=== PATIENT | female | born 1955 | race Caucasian/White ===

== ENCOUNTER → 2016-11-16 | Outpatient (CLI) | payer MEDICARE, OTHER ==
[~2016-11-16] MED LIST: ASPI-482 PO; AZEL137S5 NS; CALC-178 PO; CARB1DRO5 OP; CETI10TA16 PO; CYAN100T PO; CYCL10TA2 PO; DIAZ5TAB PO; DICY20TA30 PO; ESTR0.3T PO; FENT1PAT15 TD; FENT1PAT17 TD; FEXO180T81 PO; FLUT1DIS5 IH; FURO-69 PO; IMIQ1CRE17 TP; LACT1CAP2 PO; LACT1CAP29 PO; LANS30CA17 PO; LOSA25TA PO; MAGN100T3 PO; METF500T4 PO; METO25TA4 PO; MILK500C PO; MOVANTIK25 MG PO; MULT1CAP15 PO; OXYC30TA PO; POLY17PO5 PO; POTA10CA PO; RANI75TA12 PO; SERT25TA PO; SIMPLY SALINE; SPIR25TA3 PO
--- NOTE | 2016-11-17 01:13 | PAIN ---
DATE OF SERVICE: 11/16/2016 PROGRESS NOTE FOR PAIN CLINIC DIAGNOSES: 1. Lumbar radiculopathy with lumbar degenerative disk disease and post-lumbar laminectomy syndrome. 2. Post-cervical laminectomy syndrome. 3. Multiple joint pain. HISTORY OF PRESENT ILLNESS: The patient is a 60-year-old female who returns for followup status post medication management with both Duragesic patches and oxycodone, also taking Flexeril and Movantik with good results. The patient reports that she has been fairly steady with her pain, it has been about a 7-8 on a scale of 10. It is worse, but is currently a 2-3 on a scale of 10 today. The patient reports it is still aching and dull across the low back. The patient reports she fell on her bathtub yesterday and hurt her left knee, which is somewhat swollen in appearance today, but does not appear to have a large amount of fluid in it. The patient reports she is worried about this and we discussed that she would follow up with her orthopedic physician regarding her left knee. The patient reports otherwise doing fairly well, has had appropriate K-TRACS reporting today and appropriate urinalysis to date as well. The patient will have urinalysis today as scheduled. PHYSICAL EXAMINATION: VITAL SIGNS: The patient's blood pressure 137/73, pulse 80, respirations 18, temperature 97.8 degrees Fahrenheit, height is 5 feet 3 inches. GENERAL: The patient is awake, alert, oriented, appropriate, very pleasant demeanor. HEENT: Head shows normocephalic, atraumatic. Extraocular movements are intact and symmetrical. Oral cavity shows mucous membranes moist and pink. Dentition is intact. NECK: Shows anterior throat supple without palpable lymphadenopathy noted. Swallow reflex is symmetrical. CHEST: Shows normal on inspection. Breath sounds are clear to auscultation bilaterally. HEART: Shows S1 and S2 clear. No murmurs are auscultated. ABDOMEN: Obese, soft, nontender, nondistended. No palpable organomegaly is noted. No rebound or guarding demonstrated. BACK: Shows spine grossly midline. Slight exaggeration of thoracic kyphosis and mild flattening of lumbar lordotic curvature, previously well-healed surgical scars noted in the lumbar distribution. Lumbar paraspinous muscle shows some moderate tenderness with palpation, but only diffusely bilaterally. No tenderness over the sacrum or sacroiliac regions, or the spinous processes. The patient shows good rotation and motion of the lumbar spine, both laterally as well as extension and flexion without significant difficulty. EXTREMITIES: Lower extremities showed deep tendon reflexes at 1+ in the patellar and tendo calcaneus tendons are equal. Motor exam is approximately 4 on a scale of 5, but symmetrical and equal bilaterally. Peripheral pulses are 1+ posterior tibial and dorsalis pedis pulses. The patient does have about 1-2+ pitting edema on the bilateral ankles extending about half the distance in the knee on anterior tibia. Options were discussed with the patient. The patient's old chart was reviewed and her current medication regimen updated. Current review of systems updated today as well. We will refill the patient's oxycodone and Duragesic patches as well as Flexeril and Movantik with instructions, side effects to be aware of discussed. The patient will follow up in approximately 90 days and she was given a 3-month prescription or sooner if necessary. Again, urinalysis will be obtained today as routine screening and the patient will follow up with her orthopedic physician regarding her left knee pain. FABIAN ORDONEZ MD DR: AIDA/reji JOB#: [id number] / [id number]
== END | disposition home or self-care (01) ==
LOC: PNCL 12:45
PROVIDERS: ATTEND Anesthesiology
DX: M51.16 Intervertebral disc disorders with radiculopathy, lumbar region (principal); M96.1 Postlaminectomy syndrome, not elsewhere classified; M25.50 Pain in unspecified joint
CPT/HCPCS: G0463

== ENCOUNTER → 2017-02-15 | Outpatient (CLI) | payer MEDICARE, OTHER ==
[~2017-02-15] MED LIST changes: -LANS30CA17 PO; +LANS30CA66 PO; +POLY17PO29 PO; -POLY17PO5 PO; -POTA10CA PO; +POTASSIUM CHLO10 MEQ PO
--- NOTE | 2017-02-16 05:15 | PAIN ---
DATE OF SERVICE: 02/15/2017 PROGRESS NOTE FOR PAIN CLINIC DIAGNOSES: 1. Lumbar radiculopathy with lumbar degenerative disk disease and post lumbar laminectomy syndrome. 2. Post cervical laminectomy syndrome. 3. Multiple joint pain. HISTORY OF PRESENT ILLNESS: The patient is a 61-year-old female who returns for follow up status post medication management with both oxycodone and Duragesic patches. The patient also taking Flexeril and Naprosyn. The patient reports no side effects with the medications, it is probably 70 to 80% improvement with the medications without the side effects. The patient reports she has had recent skin cancers removed on her chest and arms x 5 and this has taken a lot of energy out of her and also having some knee pain as well as some hip pain bilaterally. The patient reports she fell on her bathtub about a week ago. She was losing balance, but has not had any other falls before or since that recently. The patient reports still significant pain across the shoulders, mid back, low back and left lower extremity, stabbing, burning pain in the leg, also shooting pain with pain in the low back, it is constant, becomes unbearable off and on in intensity, but always present and radiate into the left leg, as well as the shoulders and upper back. The patient reports it as a 10 on a scale of 10 at its worst, is a 6 at its least, and currently is a 6 today. The patient reports that the medication again does decrease it by significant amount and without significant side effects. PHYSICAL EXAMINATION: VITAL SIGNS: Blood pressure 150/79, pulse 87, respirations 18, temperature 97.5 degrees Fahrenheit. Weight is 174 pounds. GENERAL: The patient is awake, alert, oriented, appropriate, very pleasant demeanor. HEENT: Head shows normocephalic, atraumatic. Extraocular movements are intact and symmetrical. Oral cavity shows mucous membranes moist and pink. Dentition is intact. NECK: Shows anterior throat supple without palpable lymphadenopathy noted. Swallow reflex is symmetrical. CHEST: Shows normal on inspection. Previously well-healed surgical scar is noted in the anterior chest in the superior aspect from recent skin biopsies. Chest shows normal otherwise on inspection. Breath sounds are clear to auscultation bilaterally. HEART: Shows S1 and S2 clear. No murmurs auscultated. ABDOMEN: Obese, soft, nontender, nondistended. No palpable organomegaly. No rebound or guarding demonstrated. BACK: The patient's back shows spine grossly in midline. Slight exaggeration of thoracic kyphosis and mild flattening of lumbar lordotic curvature. Well-healed surgical scar is noted in the lumbar distribution. The patient's lumbar paraspinous muscle shows some moderate tenderness with palpation, but only diffusely throughout the upper, middle and lower distribution in the paraspinous musculature. EXTREMITIES: The patient's lower extremities show deep tendon reflexes at 1+ in the patella and tendo calcaneous tendons. Motor exam is strong with 5/5 dorsiflexion and extension and equal. PLAN: Options were discussed with the patient, the patient's old chart was reviewed. Her current medication regimen updated. Current review of systems updated today as well. We will refill the patient's Duragesic patch as well as oxycodone, Flexeril and Naprosyn. ____ instructions, side effects to be aware discussed. The patient will follow up in approximately 3 months and is given a 90 day supply or sooner if necessary. The patient will keep appointments with her car wash supervisor as she is having more biopsies done later this month, also with her boiler repair supervisor as she has had some edema in her lower extremities and she has been treated for congestive heart failure. Also she is having arteriograms done on the lower extremities as she has had some vascular claudication symptoms as well. I encouraged her to follow up with her vascular surgeon regarding this also. The patient understands and agrees and will follow up as scheduled. FABIAN ORDONEZ MD DR: AIDA/reji JOB#: [id number] / [id number]
== END | disposition home or self-care (01) ==
LOC: PNCL 12:05
PROVIDERS: ATTEND Anesthesiology
DX: M51.16 Intervertebral disc disorders with radiculopathy, lumbar region (principal); M96.1 Postlaminectomy syndrome, not elsewhere classified; M25.50 Pain in unspecified joint
CPT/HCPCS: G0463

== ENCOUNTER → 2017-05-10 | Outpatient (CLI) | payer MEDICARE, OTHER ==
--- NOTE | 2017-05-10 19:25 | PAIN ---
DATE OF SERVICE: 05/10/2017 DIAGNOSES: 1. Lumbar radiculopathy with lumbar degenerative disk disease and post-lumbar laminectomy syndrome. 2. Post-cervical laminectomy syndrome. 3. Multiple joint pain. HISTORY OF PRESENT ILLNESS: Ms. Ward is a 61-year-old female who returns for followup status post medication management with both Duragesic patches and oxycodone. The patient reports that she has been doing fairly well with this, but not very stable regimen, with about 75% improvement overall by her estimate. The patient reports no side effects with the medications. She was taking some [id number]-knrvwuf stool softeners and laxatives, which keeps her regular. We tried some Movantik with her in the past but she had a significant rash from this and discontinued it. The patient reports she has been increasing her activity proportionately, but she has recently broken her fifth toe on her left foot. She has the boot on that foot today as well. The patient reports otherwise doing fairly well. No new motor or sensory deficits, no new bowel or bladder incontinence. She has had some more skin cancers removed for her chest and arms since her last visit, and she is quite sad today because her dog last night. The patient reports otherwise pain is mostly in the shoulders, mid upper back, lower back, with some stabbing, burning pain in the lower extremities, and some radicular pain in the left side more than the right, which is tingling, burning, stabbing, tight, shooting, sharp, aching, radiating, constant, can be severe, unbearable, rates as 10 on a scale of 10 at its worst, 7 at its least, and a 9 on average. The patient reports no new motor or sensory deficits, no new bowel or bladder incontinence or other complaints. PHYSICAL EXAMINATION: VITAL SIGNS: Today, the patient's blood pressure is 168/74, pulse 93, respirations 18, temperature 98.8 degrees Fahrenheit, height 5 feet 1 inch, weight is 174 pounds. GENERAL: The patient is awake, alert, oriented, appropriate, very pleasant demeanor. HEENT: Head shows normocephalic, atraumatic. Extraocular movements are intact and symmetrical. Oral cavity shows mucous membranes moist and pink: The patient has a new upper plate denture in, but the lower teeth are intact. NECK: Shows anterior throat supple, without palpable lymphadenopathy noted. Swallow reflex is symmetrical. Neck shows good rotation motion both laterally as well as extension and flexion, with some minor tenderness with extension but not with forward flexion, not with right and left lateral rotation which she performs past 45 degrees and closer to 90 degrees bilaterally. CHEST: Shows normal on inspection. Breath sounds are clear to auscultation bilaterally. The patient does have some previously well-healed surgical scar in the anterior chest from recent skin biopsies as well. HEART: Shows S1 and S2 clear. No murmurs auscultated. ABDOMEN: Soft, nontender, nondistended. No palpable organomegaly. No rebound or guarding demonstrated. BACK: Shows grossly midline spine. Slight exaggeration of thoracic kyphosis and some mild flattening of lumbar lordotic curvature. Well-healed surgical scars again noted in the cervical and lumbar distributions, anterior cervical, posterior lumbar, with some minor flattening of lumbar distribution of the lordotic curvature. Paraspinous musculature shows symmetrical with inspection. There is some moderate tenderness with palpation throughout the upper, middle, lower distribution of paraspinous muscles, again diffusely without radiation, without trigger points. No tenderness over the sacrum or sacroiliac regions. No tenderness over the spinous processes. The patient shows good rotational motion both laterally as well as with extension and flexion of lumbar spine without significant pain reported. EXTREMITIES: The patient's lower extremities showed deep tendon reflexes 1+ in the patellar and tendo-calcaneus tendons. Motor exam is strong with 5/5 dorsiflexion and extension on the right, and approximately 4/5, secondary to pain from recent fracture on the left side of her left fifth toe. Quadriceps and hamstring flexion was 5/5 and equal. Upper extremities showed deep tendon reflexes 2+ in the biceps and triceps tendons. Motor exam is strong with quality control director strength rated at 5/5, as is biceps and triceps flexion and symmetrical. Peripheral pulses are 2+ in the radial and 1+ posterior tibial. No peripheral edema is noted. In the upper extremities, there are 1+ pitting edema in the right anterior tibia from the ankle to approximately two-thirds of the distance of the knee on the right side. Left side is without edema. PLAN: Options were discussed with the patient. The patient's old chart was reviewed, as her current medication regimen updated. Current review of systems updated today as well. We will refill patient's Duragesic patch as well as oxycodone. Flexeril and Naprosyn with instructions and side effects to be aware of were discussed with the patient, with each of the medications. The patient was given a 90-day supply. Will follow up in approximately that time period, or sooner if necessary. The patient was counseled as to activity levels as well as side effects to be aware with the medication. She had appropriate K-TRACS reporting as well as appropriate urinalysis to date as well. We will renew her narcotic contract today. Also, the patient was counseled as to diet as well as hydration level and will follow up as scheduled in 90 days or sooner if necessary. FABIAN ORDONEZ MD DR: AIDA/reji JOB#: [id number] / [id number]
== END | disposition home or self-care (01) ==
LOC: PNCL 13:29
PROVIDERS: ATTEND Anesthesiology
DX: M51.16 Intervertebral disc disorders with radiculopathy, lumbar region (principal); M25.511 Pain in right shoulder
CPT/HCPCS: G0463

== ENCOUNTER → 2017-08-02 | Outpatient (CLI) | payer MEDICARE, OTHER ==
[~2017-08-02] MED LIST changes: +CLOT10TR PO; +FENT1PAT90 TP; +NAPR-683 PO; +OXYC10TA PO; +SIME80TA14 PO; +[UNRECOGNIZED DRUG - OTHER] PO
--- NOTE | 2017-08-03 01:03 | PAIN ---
DATE OF SERVICE: 08/02/2017 PROGRESS NOTE FOR PAIN CLINIC DIAGNOSES: 1. Lumbar radiculopathy with lumbar degenerative disk disease, post-lumbar laminectomy syndrome. 2. Post-cervical laminectomy syndrome. 3. Multiple joint pains. HISTORY OF PRESENT ILLNESS: The patient is a 61-year-old female who returns for followup status post medication management with both Duragesic patches and oxycodone and also the patient taking Flexeril for muscle relaxation. The patient had been on Naprosyn that has been discontinued with her primary physician as she has had some findings of liver cirrhosis by ultrasound and CT scan with some fibrotic changes in the liver. The patient did have some very mildly elevated liver enzymes as well as elevated ammonia levels. The patient reports she has been feeling fairly stable; however, has had some right upper quadrant abdominal pain, but has had a cholecystectomy many years ago. The patient reports otherwise she was just having some abdominal pain and this workup led to some findings of some fibrosis in the liver. The patient reports she has been taken off of all of her herbal supplements as well as anti-inflammatories, but feels about the same. The patient reports still having pain across the shoulders and base of the neck as well as the bilateral hips and gluteus as well as across the low back and into the right leg primarily as she has had previously. The patient has been doing well on her medication regimen with no side effects from the Duragesic or the oxycodone. The patient reports the pain is a 9 on a scale of 10 at its worse mostly across the low back and shoulders, an 8 on average, an 8 at its least and it is a 8 today. The patient reports it is radiating, severe, cramping, stabbing, tingling, aching, sharp and shooting alternating mostly in the low back and shoulders. Abdominal pain has subsided almost completely since it was bothering her a few weeks ago. The patient reports no new motor or sensory deficits and no new changes. The patient reports it awakens her from sleep at night mainly the pain in the low back and occasionally the neck pain. PHYSICAL EXAMINATION: VITAL SIGNS: Today, blood pressure 132/82, pulse 84, respirations 16, temperature 97.8 degrees Fahrenheit, height 63 inches and weight 173 pounds. GENERAL: The patient is awake, alert, oriented, appropriate and very pleasant demeanor. HEENT: Head shows normocephalic and atraumatic. The patient wears eyeglasses. Extraocular movements are intact and symmetrical. Oral cavity: Mucous membranes moist and pink. Dentition is intact. NECK: Shows anterior throat supple without palpable lymphadenopathy noted. Swallow reflex is symmetrical. CHEST: Shows normal on inspection. Breath sounds are clear to auscultation bilaterally. HEART: Shows S1 and S2 clear. No murmurs auscultated. ABDOMEN: Obese, soft, nontender and nondistended. Well-healed surgical scar is noted in the right upper quadrant. No rebound or guarding demonstrated. MUSCULOSKELETAL: The patient's back shows spine grossly midline, slight exaggeration of thoracic kyphosis and mild flattening of the lumbar lordotic curvature. Lumbar paraspinous musculature shows symmetrical with flattening and real well-healed surgical scar in the lumbar distribution as well. The patient's neck shows good rotational motion both laterally as well as extension and flexion without significant difficulty. Palpation of the paraspinous musculature shows some moderate tenderness in the inferior aspect of the paraspinous distribution, but without radiation. Also some mild tenderness in the right greater than left superior medial and lateral trapezius without radiation and without trigger points. Low back shows tenderness with palpation in the lumbar paraspinous muscles, although they are symmetrical without trigger points and without radiation. The patient has good rotational motion both laterally as well as extension and flexion in the lumbar spine as well. Extremities show deep tendon reflexes 1+ in the patellar and tendo calcaneus tendons. Motor exam is 5/5 on the right and approximately 4/5 on the left with dorsiflexion and extension. Peripheral pulses are 1+ bilaterally. No peripheral edema is noted, although she has some erythematous discoloration on the right foot compared to the left, but with good blanching and capillary refill. Options were discussed with the patient. The patient's old chart was reviewed. Her current medication regimen updated. Current review of systems updated today as well and we will refill the patient's Duragesic patch as well as oxycodone for a 2-month supply. The patient is to follow up with her primary physician regarding further workup on her liver enzymes and cirrhosis condition. We will hold Naprosyn as noted. The patient will have a urinalysis today as well and she has had normal appropriate urinalysis and appropriate K-TRACS reporting to date. We will obtain another urinalysis today as a routine screening. The patient was given instructions as well as side effects to be aware of with the medication, any changes in the medication recommendations from her primary physician was asked to have her office call and notify us as well. FABIAN ORDONEZ MD DR: AIDA/reji JOB#: [id number] / [id number]
== END | disposition home or self-care (01) ==
LOC: PNCL 13:04
PROVIDERS: ATTEND Anesthesiology
DX: M51.16 Intervertebral disc disorders with radiculopathy, lumbar region (principal); K74.60 Unspecified cirrhosis of liver
CPT/HCPCS: G0463

== ENCOUNTER → 2017-10-25 | Outpatient (CLI) | payer MEDICARE, OTHER | END | disposition home or self-care (01) | LOC: PNCL 13:09 | DX: M51.16 Intervertebral disc disorders with radiculopathy, lumbar region (principal) | CPT/HCPCS: G0463 ==

== ENCOUNTER → 2018-01-17 | Outpatient (CLI) | payer MEDICARE, OTHER | END | disposition home or self-care (01) | LOC: PNCL 13:28 | DX: M51.16 Intervertebral disc disorders with radiculopathy, lumbar region (principal) | CPT/HCPCS: G0463 ==

== ENCOUNTER → 2018-04-11 | Outpatient (CLI) | payer MEDICARE, OTHER ==
[~2018-04-11] MED LIST changes: -METF500T4 PO; +METF500T5 PO; +POTA10TA12 PO; -POTASSIUM CHLO10 MEQ PO; -SPIR25TA3 PO; +SPIR25TA5 PO
--- NOTE | 2018-04-12 07:22 | PAIN ---
DATE OF SERVICE: 04/11/2018 PROGRESS NOTE FOR PAIN CLINIC DIAGNOSES: 1. Lumbar radiculopathy with lumbar degenerative disk disease, post-lumbar laminectomy syndrome. 2. Post-cervical laminectomy syndrome. 3. Multiple joint pains. HISTORY OF PRESENT ILLNESS: The patient is a 62-year-old female who returns for followup status post medication management with both Duragesic patches and oxycodone. The patient reports she has been doing very well with each of these and indeed has been on very stable regimen with the two medications with no skin irritation. She has been rotating the sites of her patches. The patient reports no excessive drowsiness, sleepiness, itching, nausea or constipation. She has tried to drink more water as well. The patient reports she has been in the hospital for cellulitis in her right leg twice since her last visit and her ammonia levels have been increased. They are watching this very closely with her engagement specialist. The patient reports the pain is in her neck, shoulders, upper back, mid back and low back into the right posterior gluteus, posterior thigh radiating to the posterior calf as well as some in the knees bilaterally as well as the shoulder joints. The patient reports the pain is sharp, tight, shooting, stabbing, cramping, burning, tingling, constant, radiating, severe, on and off in intensity, worse with activities, worse with standing, walking and using a computer. The patient reports her pain is a 10 on a scale of 10 at its worst, 9 on average and a 9 at its least and is a 9 today. The patient reports no new motor or sensory deficits and no new changes. PHYSICAL EXAMINATION: VITAL SIGNS: The patient's blood pressure 134/86, pulse 96, respirations 16, temperature 98.1 degrees Fahrenheit. Height is 63 inches and weight 174 pounds. GENERAL: The patient is awake, alert, oriented, appropriate, very pleasant demeanor. HEENT: Head shows normocephalic and atraumatic. Extraocular movements intact, symmetrical. Oral cavity, mucous membranes are moist and pink. Dentition is intact. NECK: Shows anterior throat is supple without palpable lymphadenopathy noted. Swallow reflex is symmetrical. CHEST: Shows normal on inspection. Breath sounds are clear to auscultation bilaterally. HEART: Shows S1, S2 clear. No murmurs auscultated. ABDOMEN: Obese, but soft, nontender, nondistended. No palpable organomegaly is noted. No rebound or guarding demonstrated. BACK: Shows spine grossly in the midline. Slight exaggeration of thoracic kyphosis and some flattening of lumbar lordotic curvature. She has well-healed surgical scarring in lumbar distribution. Paraspinous musculature shows symmetrical, but tender with palpation throughout the cervical paraspinous musculature in the middle and lower distributions as well as the superior, medial and lateral trapezius essentially equal without specific trigger points, but with diffuse tenderness throughout ____ most of the thoracic distribution as well as the upper, lower and middle distribution of paraspinous muscles in the lumbar distribution. Again diffusely tender without radiation. No tenderness over the sacrum or sacroiliac regions. EXTREMITIES: Lower extremities show deep tendon reflexes 1+ in the patellar and tendo calcaneus tendons. Upper extremities shows 2+ biceps and triceps tendons. Motor exam is strong with tourism radio presenter strength rated approximately 4 on a scale of 5. Bicep and tricep flexion 4/5 as well. Lower extremities show dorsiflexion and extension at 4/5. The patient's right leg does show some erythematous discoloration. The patient has a bandage in the mid upper calf on the right side, which is well wrapped. The patient does have 1+ edema in the right lower extremity, but not the left. Peripheral pulses are 2+ radial and 1+ posterior tibial. Options were discussed with the patient. The patient's old chart was reviewed as was her current medication regimen updated. Current review of systems updated today as well. We will refill the patient's Duragesic patch as well as oxycodone for 3 month period. The patient has had appropriate K-TRACS reporting as well as appropriate urinalysis to date and will be given a 90-day supply of her prescriptions with instructions, side effects to be aware of discussed. The patient will follow up in approximately 90 days or sooner if necessary. FABIAN ORDONEZ MD DR: AIDA/reji JOB#: [id number] / [id number]
== END | disposition home or self-care (01) ==
LOC: PNCL 13:14
PROVIDERS: ATTEND Anesthesiology
DX: M51.16 Intervertebral disc disorders with radiculopathy, lumbar region (principal)
CPT/HCPCS: G0463

== ENCOUNTER → 2018-07-04 | Outpatient (CLI) | payer MEDICARE, OTHER ==
[~2018-07-04] MED LIST changes: +METF500T16 PO; -METF500T5 PO
--- NOTE | 2018-07-04 22:03 | PAIN ---
DATE OF SERVICE: 07/04/2018 PROGRESS NOTE FOR PAIN CLINIC DIAGNOSES: 1. Lumbar radiculopathy with lumbar degenerative disk disease and post-lumbar laminectomy syndrome. 2. Post-cervical laminectomy syndrome. 3. Multiple joint pain. HISTORY OF PRESENT ILLNESS: The patient is a 62-year-old female who returns for followup status post medication management. The patient is managed with Duragesic patch as well as oxycodone. The patient reports she has been doing quite well, has been on a very stable regimen. Reports her pain control is about 75% or so. She has some increased pain in her left leg as she is having some cellulitis and edema issues, once again in her lower extremities, worse on the left than the right. Otherwise, her pain is fairly well managed with her low back pain as well as her back, neck and shoulder pain. The patient reports the pain in her back and neck and leg is aching, shooting, tingling, burning, cramping, stabbing, sometimes radiating, sometimes constant in the left leg especially. The patient reports her pain is worst at 10 on a scale of 10 in her left leg, least is 9, average is a 10 on the leg itself, the back and shoulders are more like a 4 or 5 by her estimation. The patient reports she sleeps during the day generally but does not awaken her often from the pain except for her left leg recently. The patient reports she is having this looked at with both her busperson as well as her tailor's aide. The patient reports no new motor or sensory deficits, no bowel or bladder incontinence. Reports some complaints of memory issues and forgetfulness, also having low energy. PHYSICAL EXAMINATION: VITAL SIGNS: The patient's blood pressure 132/79, pulse 91, respirations are 16, temperature is 98.1 degrees Fahrenheit. Height is 63 inches, weight is 165 pounds. GENERAL: The patient is awake, alert, oriented, appropriate, very pleasant demeanor. HEENT: Head shows normocephalic, atraumatic. Extraocular movements are intact and symmetrical. Oral cavity: Mucous membranes are moist and pink. Dentition is intact. NECK: Shows anterior throat supple without palpable lymphadenopathy noted. Swallow reflex is symmetrical. CHEST: Shows normal on inspection. Breath sounds are clear to auscultation bilaterally. HEART: Shows S1, S2 clear. No murmurs auscultated. ABDOMEN: Soft, nontender, nondistended. No palpable organomegaly is noted. No rebound or guarding demonstrated. BACK: Shows spine grossly in the midline. Slightly exaggerated thoracic kyphosis and some mild flattening of lumbar lordotic curvature. Lumbar paraspinous musculature is symmetrical and well-healed surgical scar present. Moderate tenderness throughout the cervical paraspinous musculature in superior, medial and lateral trapezius as well as the lumbar superior medial and lateral aspects of the paraspinous muscles as well, diffusely without trigger points or radiation. The patient has good rotational motion of cervical spine, both laterally as well as extension and flexion as well as of the lumbar spine, both laterally, extension and flexion as well. EXTREMITIES: Upper extremity deep tendon reflexes are 2+ and lower deep tendon reflexes are 1+ in the patellar tendons. Lower extremities show significant erythematous change in both lower extremities from the knee down, more on the left than the right with about 3+ pitting edema on the left and 1+ on the right. Peripheral pulses are 1+ posterior tibial bilaterally. Options were discussed with the patient. The patient's old chart was reviewed as her current medication regimen updated. Current review of systems updated today as well. We will refill the patient's Duragesic patch as well as oxycodone with instructions, side effects to be aware of. The patient has had appropriate K-TRACS reporting as well as appropriate urinalysis to date and we will refill this for a 90-day period as the patient does live far distance from the office and has done very well with these with very stable regimen. The patient was given instructions as well as side effects to be aware of with each of the medication, will follow up in approximately 90 days or sooner as necessary. FABIAN ORDONEZ MD DR: AIDA/reji JOB#: [id number] / [id number]
== END | disposition home or self-care (01) ==
LOC: PNCL 13:05
PROVIDERS: ATTEND Anesthesiology
DX: M54.16 Radiculopathy, lumbar region (principal); M51.36 Other intervertebral disc degeneration, lumbar region; M96.1 Postlaminectomy syndrome, not elsewhere classified; M25.50 Pain in unspecified joint
CPT/HCPCS: G0463

== ENCOUNTER → 2018-10-01 | Outpatient (CLI) | payer MEDICARE, OTHER ==
[~2018-10-01] MED LIST changes: +LACT20SO PO; -OXYC30TA PO; +OXYC30TA3 PO; +[UNRECOGNIZED DRUG - OTHER]
--- NOTE | 2018-10-01 21:37 | PAIN ---
DATE OF SERVICE: 10/01/2018 PROGRESS NOTE FOR PAIN CLINIC DIAGNOSES: 1. Lumbar radiculopathy with lumbar degenerative disk disease and post-lumbar laminectomy syndrome. 2. Post-cervical laminectomy syndrome. 3. Multiple joint pains. HISTORY OF PRESENT ILLNESS: The patient is a 62-year-old female who returns for followup status post medication management with Duragesic patches and oxycodone. The patient reports she had been doing very well, had been on very stable regimen with it and indeed has been on this for quite some time with good results. The patient reports about 70% to 80% improvement with the medicines, without significant side effects. The patient reports no significant constipation. No dizziness, drowsiness or any type of nausea or vomiting. No itching. The patient tolerates the medicines very well. The patient reports she has had some cellulitis in both of her legs lately, which has been itching and bothering her, but otherwise, her back pain and neck pain is fairly well controlled. The patient reports it is worse with activity, walking and standing and can be as high as a 10 on a scale of 10, but most times it is about a 6. The patient reports it is sharp, shooting, burning, tingling, cramping, sometimes constant, radiating with activity, standing and walking. She has had difficulty getting in and out of the bathtub because of the pain in her back, stepping over the side of the tub. Other than that, she sleeps well at night. It does not awaken her from sleep. She has been increasing activity with walking and household activities, but plans to be more active soon with exercise routine. The patient also reports that her nephew has recently and she is going to start attending a grief support group at her local [facility] with a friend of hers. No new motor or sensory deficits. No new bowel or bladder incontinence or other complaints. No side effects with medications. PHYSICAL EXAMINATION: VITAL SIGNS: The patient's blood pressure is 126/68, pulse 91, respirations 18 and temperature 98.2 degrees Fahrenheit. Height is 5 feet 1 inch, weight is 165 pounds. GENERAL: The patient is awake, alert, oriented, appropriate, very pleasant demeanor. HEENT EXAMINATION: Shows normocephalic, atraumatic. Extraocular movements are intact and symmetrical. Oral cavity, mucous membranes are moist and pink. Dentition is intact. NECK: Shows anterior throat supple, without palpable lymphadenopathy noted. Swallow reflex is symmetrical. CHEST: Shows normal on inspection. Breath sounds are clear to auscultation bilaterally. HEART: Shows S1, S2 clear. No murmurs auscultated. ABDOMEN: Soft, nontender and nondistended. No palpable organomegaly is noted. No rebound or guarding demonstrated. BACK: Shows spine grossly in the midline. Increased thoracic kyphosis and some moderate flattening of the lumbar lordotic curvature. Lumbar paraspinous muscle shows symmetrical on inspection. On palpation, it shows some moderate tenderness diffusely, but only in the low lumbar distribution. Cervical paraspinous muscle shows moderately tender, but only in the middle and lower aspect of the cervical paraspinous muscles. Neck shows full rotational motion of the cervical spine, both laterally as well as extension and flexion, without significant difficulty. Low back shows good rotation, both laterally, greater than 10 degrees right and left as well as extension greater than 10 degrees posteriorly and forward flexion of 45 degrees, without significant pain. EXTREMITIES: Show upper extremity deep tendon reflexes 2+, lower extremities are 1+ posterior tibial. The patient does have some edema in the lower extremities, left greater than right, approximately 1- to 2+ left and 1+ right in the ankles. To about two-thirds of the distance of the knees on the anterior tibia bilaterally, some pinkish discoloration, consistent with some cellulitis, diagnosis that she reported. Options were discussed with the patient. The patient's old chart was reviewed as was her current medication regimen updated. Current review of systems updated today as well. We will refill the patient's Duragesic patch as well as oxycodone, with instructions on side effects to be aware of discussed with each of the medications. The patient has been on a very stable regimen and has had appropriate K-TRACS reporting as well as appropriate urinalysis to date. We will screen with a new urinalysis today as routine screening and renew this patient's narcotic contract. She will be given a copy of this as well. The patient will follow up in approximately 90 days or sooner if necessary. FABIAN ORDONEZ MD DR: AIDA/reji JOB#: [id number] / [id number]
== END | disposition home or self-care (01) ==
LOC: PNCL 13:05
PROVIDERS: ATTEND Anesthesiology
DX: M51.16 Intervertebral disc disorders with radiculopathy, lumbar region (principal); M96.1 Postlaminectomy syndrome, not elsewhere classified; M25.50 Pain in unspecified joint
CPT/HCPCS: G0463

== ENCOUNTER → 2018-12-24 | Outpatient (CLI) | payer MEDICARE, OTHER ==
[~2018-12-24] MED LIST changes: -CYAN100T PO; +CYAN100T2 PO; -RANI75TA12 PO; +RANI75TA89 PO; +RIFA550T4 PO
--- NOTE | 2018-12-25 06:53 | PAIN ---
DATE OF SERVICE: 12/24/2018 Progress Note DIAGNOSES: 1. Lumbar radiculopathy with lumbar degenerative disk disease and post-lumbar laminectomy syndrome. 2. Cervical radiculopathy with cervical post-laminectomy syndrome. 3. Multiple joint pain. HISTORY OF PRESENT ILLNESS: The patient is a 63-year-old female who returns for followup status post medication management with both, Duragesic patches and oxycodone. The patient was doing very well. She has been on a very stable regimen of medication for an extended period of time without significant side effects. The patient reports she has been doing fairly well with about a 70%-80% improvement with the medications. The patient reports it is her chief complaint is some pain in her left leg on the anterior bernal. She has an injury with a sore that appears to be at earliest stages of granulation, but with some erythema surrounding the area as well. The patient reports this is painful also with her general pain in the low back, bilateral lower extremities, neck and shoulders. It is fairly well controlled with medication. The patient reports pain is a 9-10 on a scale of 10 on average, 10 at its worst and 10 at least and is 10 on scale of 10 today. The patient reports it is stabbing, severe at base of the neck, shoulders, upper back, mid back, low back, lower extremities, again pain in the left lower extremity with recent superficial injury. The patient reports she is sleeping fairly well at night, worse with walking and standing, better with sitting or lying down. The medication allows her to travel with greater ease and comfort and get through her day without significant side effects, but with decently controlled pain about 70%-80% is noted. PHYSICAL EXAMINATION: VITAL SIGNS: The patient's blood pressure is 130/74, pulse 94, respirations are 18, temperature is 98.6 degrees Fahrenheit, height is 5 feet 1 inch, weight is 150 pounds. GENERAL: The patient is awake, alert, oriented, appropriate, very pleasant demeanor. HEENT: Head is normocephalic, atraumatic. Extraocular movements are intact and symmetrical. Oral cavity: Mucous membranes moist and pink. The patient with full upper denture and lower partial. NECK: Shows anterior throat supple without palpable lymphadenopathy noted. Swallow reflex symmetrical. CHEST: Shows normal with inspection. Breath sounds clear to auscultation bilaterally. HEART: Shows S1, S2 clear. No murmurs auscultated. ABDOMEN: Obese, soft, nontender, nondistended. BACK: Shows spine grossly in the midline. Slight exaggeration of thoracic kyphosis, some minor flattening of lumbar lordotic curvature. Well healed surgical scars noted in the lumbar distribution. Lumbar paraspinous muscle shows symmetrical on inspection, on palpation shows some moderate tenderness diffusely bilaterally, but only diffusely in the upper, middle and lower distribution of paraspinous muscles. Cervical paraspinous musculature shows symmetrical on inspection and some mild tenderness in the inferior aspect of the cervical paraspinous musculature bilaterally into the superior medial trapezius, but without trigger points, without radiation. The patient has full rotational motion of cervical spine, both laterally, as well as extension and flexion. Lumbar spine shows good rotation, greater than 10 degrees, right and left, as well as extension greater than 10 degrees, forward flexion 45 degrees without significant pain reported as well. The patient's upper extremities show deep tendon reflexes 2+ in the biceps, triceps tendons. Lower extremities are 1+ posterior tibial and dorsalis pedis pulses. Senior Gis Analyst strength is strong with 5/5 bilaterally. Dorsiflexion, extension is intact with 4-5, but symmetrical and equal as well. The patient does have a bandaged wound on the left leg at about two-thirds of distance superior of the ankle on the anterior tibia, which does appear to have some granulation tissue in it, but is erythematous inferior to this. No peripheral edema is noted bilaterally in the upper or lower extremities. ASSESSMENT AND PLAN: Options were discussed with the patient. The patient's old chart was reviewed, her current medication regimen updated, current review of systems updated today as well. We will refill the patient's oxycodone, as well as Duragesic patches for a 3-month period. The patient has had appropriate K-TRACS reporting, as well as appropriate urinalysis to date. The patient was given instruction, as well as side effects to be aware of with medication. We will follow up in approximately 90 days or sooner as necessary. The patient was encouraged to follow up with her primary care physician regarding her left leg wound as well. FABIAN ORDONEZ MD DR: AIDA/reji JOB#: [id number] / [id number]
== END | disposition home or self-care (01) ==
LOC: PNCL 13:07
PROVIDERS: ATTEND Anesthesiology
DX: M51.16 Intervertebral disc disorders with radiculopathy, lumbar region (principal); M96.1 Postlaminectomy syndrome, not elsewhere classified; M54.5 Low back pain; M79.662 Pain in left lower leg; M79.661 Pain in right lower leg; M54.2 Cervicalgia; M25.512 Pain in left shoulder; M25.511 Pain in right shoulder
CPT/HCPCS: G0463

== ENCOUNTER → 2019-03-18 | Outpatient (CLI) | payer MEDICARE, MEDICAID ==
--- NOTE | 2019-03-19 00:14 | PAIN ---
DATE OF SERVICE: 03/18/2019 PROGRESS NOTE FOR PAIN CLINIC DIAGNOSES: 1. Lumbar radiculopathy with lumbar degenerative disk disease and post-lumbar laminectomy syndrome. 2. Cervical radiculopathy with post-cervical laminectomy syndrome. 3. Multiple joints pain. HISTORY OF PRESENT ILLNESS: The patient is a 63-year-old female who returns for followup status post medication management with both oxycodone and Duragesic patches. The patient has been doing very well. She has been on very stable regimen and reports that she is about 70-75% improved with the medications. Some constipation is the only side effect, but she controls this with [id number] laxatives and hydration. The patient reports her pain in the low back currently and also in her left leg as she recently ran into a coffee table when she was walking at home and significantly. She is seeing a wound clinic near her local facility near her home. We would doing some wound care and some antibiotic treatment as well. The patient reports her pain is a 10 on scale of 10 at its worst average and at its least and is a 10 today in the left leg, low back of the thigh. The patient reports it is aching and dull, sharp at times, worse with standing and walking with her low back as well as her neck and shoulders, but better with sitting or lying down. The patient reports it does not awaken her from sleep at night. She is feeling more unstable on her leg after she hit her left leg on the table, but she is not using a walker. She is using a cane, however. PHYSICAL EXAMINATION: VITAL SIGNS: Today, the patient's blood pressure 175/88, pulse 107, respirations 18, temperature 97.9 degrees Fahrenheit. Height is 5 feet 3 inches. Weight is 155 pounds. GENERAL: The patient is awake, alert, oriented, appropriate. She is very pleasant in demeanor. HEENT: Normocephalic, atraumatic. Extraocular muscles are intact and symmetrical. Oral cavity, mucous membranes are moist and pink. Dentition is intact. NECK: Shows anterior throat supple without palpable lymphadenopathy noted. Swallow reflex symmetrical. CHEST: Shows normal inspection. Breath sounds are clear bilaterally. HEART: Shows S1, S2 clear. ABDOMEN: Obese, soft, nontender, nondistended. BACK: Shows spine grossly in the midline, slight decrease in cervical lordotic curvature. Thoracic kyphotic curvature is slightly increased and lumbar lordotic curvature is decreased. Well-healed surgical scar noted. Paraspinous muscle shows symmetrical on inspection of the cervical, thoracic and lumbar distribution with palpation. Cervical paraspinous muscle shows moderate tenderness bilaterally in the inferior aspect of the cervical paraspinous muscles into the superior medial trapezius, but not into the lateral aspect. The patient's lower back shows some moderate tenderness with palpation bilaterally, but only diffusely throughout the upper, middle and lower distributions of paraspinous muscles without asymmetry or trigger points. The patient has good rotational motion of both the cervical and lumbar distributions without significant pain reported with lateral rotation as well as extension and flexion in all these regions. The patient's upper extremities showed deep tendon reflexes 2+ in the biceps and triceps tendons. Motor exam is strong with director appointment strength rated 5/5. Lower extremities showed deep tendon reflexes at 1+ in the patellar and tendo calcaneus tendons. Motor exam is approximately 4 on a scale of 5 on the left, 5/5 on the right. The patient does have significant cellulitis and erythematous change on the anterior aspect of the lower leg on the left and has wounds x 2 from the recent injury, which are bandaged. We did take the bandages down. It appears the wounds are healing, but with some weeping serosanguineous but clear fluid and will re-bandage today in the clinic. Peripheral pulses are 1+. There is approximately 2+ pitting edema bilaterally in the ankles, continued about two-third distance to the knee on the left and one-third distance on the right. Options were discussed with the patient. The patient's old chart was reviewed as well as her current medication regimen updated. Current review of systems updated today as well and we will refill the patient's medications. She has had appropriate K-TRACS reporting as well as appropriate urinalysis to date, a 90-day supply with instructions and side effects to be aware discussed with each of her medications. The patient will return to clinic in 90 days or sooner as necessary. FABIAN ORDONEZ MD DR: AIDA/reji JOB#: [id number] / [id number]
== END | disposition home or self-care (01) ==
LOC: PNCL 13:40
PROVIDERS: ATTEND Anesthesiology
DX: M51.16 Intervertebral disc disorders with radiculopathy, lumbar region (principal); M96.1 Postlaminectomy syndrome, not elsewhere classified; M25.50 Pain in unspecified joint
CPT/HCPCS: G0463

== ENCOUNTER → 2019-06-10 | Outpatient (CLI) | payer MEDICARE, MEDICAID ==
--- NOTE | 2019-06-10 14:58 | PAIN ---
DATE OF SERVICE: 06/10/2019 PROGRESS NOTE FOR PAIN CLINIC DIAGNOSES: 1. Lumbar radiculopathy with lumbar degenerative disk disease and lumbar post-laminectomy syndrome. 2. Cervical radiculopathy with cervical post-laminectomy syndrome. 3. Multiple joint pain. HISTORY OF PRESENT ILLNESS: The patient is a 63-year-old female who returns for followup status post medication management with both Duragesic patches and oxycodone. The patient reports she has been on a very stable regimen. Still has some pain in the low back, more on the left side, which has gotten worse after she fell a few weeks ago, also had to perform the Heimlich maneuver on herself at home as she was choking, used the back of a chair, which was effective in dislodging the food item in her throat, but has had some significant pain in the ribs as well as the low back since that time. The patient reports otherwise is doing fairly well, has been on stable regimen. Still has pain in the base of the neck and shoulders, upper back, mid back, low back, and right lower extremity. The patient reports it is a 10 on a scale of 10 at its worst over the past week, 9 on average, 7 at its least, and is a 9 today. The patient reports she is waiting to hear from her primary doctor about possible liver transplant or other options with chronic hepatitis as the diagnosis. The patient reports that she is doing better with lying down or sitting, much worse with standing and walking with the pain in the neck, shoulders, upper back, mid back and low back. The patient reports it is aching, sharp, dull, tight, shooting, stabbing, radiating, becoming constant, severe with activity, but generally does not awaken her from sleep at night. PHYSICAL EXAMINATION: VITAL SIGNS: The patient's blood pressure 146/74, pulse 94, respirations 18, temperature 96.8 degrees Fahrenheit, height 5 feet 3 inches, weight is 154 pounds. GENERAL: The patient is awake, alert, oriented, appropriate, very pleasant demeanor. HEENT: Shows normocephalic, atraumatic. Extraocular movements are intact and symmetrical. Oral cavity: Mucous membranes moist and pink. Dentition is intact. NECK: Shows anterior throat supple without palpable lymphadenopathy noted. Swallow reflex symmetrical. CHEST: Shows normal on inspection. Breath sounds clear to auscultation bilaterally. HEART: Shows S1, S2 clear. No murmurs auscultated. ABDOMEN: Obese, soft, nontender, nondistended. BACK: Shows spine grossly in the midline. Exaggeration of thoracic kyphosis and some slight flattening of lumbar lordotic curvature. Lumbar paraspinous muscle shows symmetrical on inspection, on palpation shows some moderate tenderness diffusely throughout the middle, upper, and lower distribution of the paraspinous muscles, more on the left than the right with very firm rope-like musculature in the left paramedian distribution, less tender on the right but present and very firm rope-like as well without radiation. EXTREMITIES: The patient's upper extremities show deep tendon reflexes 2+ in the biceps, triceps tendons. Lower extremities are 1+ posterior in the patellar and tendo-calcaneus tendons. The patient has 3+ pitting edema in both of the lower extremities with some erythematous appearance of the right lower extremity compared to the left. The patient does have healed scars on both legs anteriorly as well. Options were discussed with the patient. The patient's old chart was reviewed as her current medication regimen updated. Current review of systems updated today as well. We will proceed with refill of the patient's medications. The patient has already been on a very stable regimen, has had appropriate K-TRACS reporting as well as appropriate urinalysis to date. We will refill the patient's medications for a 3-month period of Duragesic patch as well as oxycodone for breakthrough. The patient was given instruction as well as side effects to be aware of each of the medication and will follow up in approximately 90 days or sooner if necessary. FABIAN ORDONEZ MD DR: AIDA/reji JOB#: [id number] / [id number]
== END | disposition home or self-care (01) ==
LOC: PNCL 13:13
PROVIDERS: ATTEND Anesthesiology
DX: M51.16 Intervertebral disc disorders with radiculopathy, lumbar region (principal); M50.10 Cervical disc disorder with radiculopathy, unspecified cervical region; M96.1 Postlaminectomy syndrome, not elsewhere classified; M25.50 Pain in unspecified joint; E66.9 Obesity, unspecified
CPT/HCPCS: G0463

== ENCOUNTER → 2019-09-02 | Outpatient (CLI) | payer MEDICARE, MEDICAID ==
[~2019-09-02] MED LIST changes: +NYST1POW5 MC
--- NOTE | 2019-09-03 00:29 | PAIN ---
DATE OF SERVICE: 09/02/2019 PROGRESS NOTE FOR PAIN CLINIC DIAGNOSES: 1. Lumbar radiculopathy with lumbar degenerative disk disease and lumbar post-laminectomy syndrome. 2. Cervical radiculopathy with cervical post-laminectomy syndrome. 3. Multiple joint pain. HISTORY OF PRESENT ILLNESS: The patient is a 63-year-old female who returns for followup status post medication management with Duragesic patches and oxycodone. The patient has been on this for an extended period of time with very good results and very stable with her medication regimen. Her chief complaint today is low back and right greater than left lower extremity pain. The patient also has significant cellulitis in both lower extremities from the knee down and does take antibiotics daily through PICC line in the right arm. The patient reports the pain is a 9 on a scale of 10 at its worst, 9 on average and a 3 at its least and is a 9 today. The patient reports no new changes in motor or sensory deficit. She reports she does have an appointment to speak with a potential liver transplant options at the end of the month. She is somewhat stressed about this as well. The patient reports the pain is aching, dull, sharp, shooting, severe cramping, stabbing at times as well, and worse in the morning when she first gets out of bed in the arms and elbows, also in the knees, especially on the right knee with significant pain as well as bilateral hips and shoulders. The patient reports no new motor or sensory deficits. Reports when she is lying down to sleep, it does not awaken her from sleep most nights for about 8 hours or so as well as she is able to sleep. PHYSICAL EXAMINATION: VITAL SIGNS: The patient's blood pressure 134/73, pulse 98, respirations are 16, temperature is 98.8 degrees Fahrenheit, and weight is 152 pounds. GENERAL: The patient is awake, alert, oriented, appropriate, very pleasant demeanor. HEENT: Shows normocephalic, atraumatic. The patient wears eye glasses. Extraocular movements are intact and symmetrical. Oral cavity: Mucous membranes moist and pink. Dentition is intact. NECK: Shows anterior throat supple. No palpable lymphadenopathy is noted. Swallow reflex symmetrical. CHEST: Shows normal on inspection. Breath sounds are clear, but distant bilaterally. HEART: Shows S1, S2 clear. ABDOMEN: Obese, soft, nontender, nondistended. BACK: Shows spine grossly in the midline, slight exaggerated thoracic kyphosis, some minor flattening of lumbar lordotic curvature with well-healed surgical scar in the lumbar distribution. Lumbar paraspinous muscle shows symmetrical on inspection, with palpation some moderate tenderness throughout the upper, middle and lower distribution of paraspinous muscles diffusely to a moderate extent. The patient has good rotational motion of lumbar spine with some minor tenderness with extension, but not with forward flexion. EXTREMITIES: The patient's lower extremities show deep tendon reflexes 1+ in the patellar and tendo calcaneus tendons. Motor exam is approximately 4 on a scale of 5 with dorsiflexion, extension, but equal. Peripheral pulses are 1+ posterior tibia. The patient does have significant edema approximately 2+ in the bilateral ankles extending to about 10 cm inferior to the patella on right and left lower extremities on the anterior tibia. Significant erythema is noted consistent with the patient's diagnosis of cellulitis in both lower extremities and appears reasonably equal in color and appearance, but again erythematous. PLAN: Options were discussed with the patient. The patient's old chart was reviewed as her current medication regimen updated. Current review of systems updated today as well. The patient had appropriate K-TRACS reporting as well as appropriate urinalysis to date. We will refill the patient's medication for a 90-day period with oxycodone as well as Duragesic patch. The patient was given instruction as well as side effects to be aware of with medications once again. Also, maintain good fluid hydration and exercise as possible and as tolerated. The patient will follow up with her primary physician coming up later this month as well, as well as transplant team at the end of the month as scheduled. We will have urinalysis today as part of her obtaining a screening. FABIAN ORDONEZ MD DR: AIDA/reji JOB#: [id number] / [id number]
== END | disposition home or self-care (01) ==
LOC: PNCL 12:49
PROVIDERS: ATTEND Anesthesiology
DX: M51.16 Intervertebral disc disorders with radiculopathy, lumbar region (principal); M96.1 Postlaminectomy syndrome, not elsewhere classified
CPT/HCPCS: G0463

== ENCOUNTER → 2019-11-25 | Outpatient (CLI) | payer MEDICARE, MEDICAID ==
--- NOTE | 2019-11-25 15:01 | PAIN ---
DATE OF SERVICE: 11/25/2019 PROGRESS NOTE FOR PAIN CLINIC DIAGNOSES: 1. Lumbar radiculopathy with lumbar degenerative disk disease and lumbar post-laminectomy syndrome. 2. Cervical radiculopathy with cervical post-laminectomy syndrome. 3. Multiple joint pains. HISTORY OF PRESENT ILLNESS: The patient is a 63-year-old female who returns for followup status post medication management with both oxycodone and Duragesic patches. The patient has been very stable on this regimen and has been on for an extended period of time with good results and about a 75% improvement with the pain with this medication and no significant side effects. The patient reports she fell about 2 weeks ago on a ramp from her home and bruised her right shoulder, anterior chest and indeed still has a resolving bruise in this area. The patient reports that the pain is shooting down the shoulders, neck, upper back, mid back, mainly in her low back radiating to the right lower extremity. The patient reports it is stabbing, radiating, constant, severe, unbearable at times, shooting, worse with activity, walking, standing, worse since her fall. She did not seek medical attention immediately and that began to return, it has been about 2 weeks ago by her estimate since she fell. The patient reports it is getting better slowly. The patient reports no new motor or sensory deficits. Reports it has been waking her from sleep, mostly in the low back and right shoulder about every 6-7 hours, but not more frequently from that. The patient reports no bowel or bladder incontinence or other complaints. PHYSICAL EXAMINATION: VITAL SIGNS: The patient's blood pressure 142/76, pulse 96, respirations 16, temperature 98.2 degrees Fahrenheit, weight is 153 pounds. GENERAL: The patient is awake, alert, oriented, appropriate, very stable in demeanor. HEENT: Shows normocephalic, atraumatic. Extraocular movements are intact and symmetrical. Oral cavity: Mucous membranes moist and pink. Dentition is intact. NECK: Shows anterior throat supple. CHEST: Shows normal on inspection. Breath sounds are clear bilaterally. The patient does have bruising area over the right clavicle and over the anterior chest, which appears to be resolving with different colors using green and purple. Left side shows no bruising. HEART: Shows S1, S2 clear. No murmurs auscultated. ABDOMEN: Soft, obese, nontender, nondistended. BACK: Shows spine grossly in the midline. Slight exaggeration of thoracic kyphosis, some flattening of cervical lordotic curvature and flattening of lumbar lordotic curvature with well-healed surgical scar in the lumbar distribution. Paraspinous muscle shows symmetrical, but with palpation shows some moderate tenderness throughout the upper, middle and lower distribution of the cervical paraspinous musculature, upper trapezius as well and thoracic paraspinous muscles, but no specific trigger points, no radiation of pain. Lumbar paraspinous muscle shows symmetrical as well and firm with mild tenderness throughout the upper, middle and lower distribution of paraspinous muscles also, but without asymmetry or trigger points. The patient does show good rotational motion of cervical spine, both laterally as well as extension and flexion without significant pain reported. Low back shows good rotation laterally as well as extension and flexion without significant increase in pain also. EXTREMITIES: The patient's upper extremities show deep tendon reflexes 2+ in the biceps and triceps tendons. Motor exam is strong with strap machine operator strength rated at 5/5. Bicep and tricep flexion approximately 4/5 equal and symmetrical. Lower extremities show deep tendon reflexes 1+ patellar and tendo calcaneus tendons. Motor exam is strong with 4/5, but equal dorsiflexion, extension, quadriceps and hamstring flexion. The patient does have about 2+ pitting edema at bilateral ankles with some mild erythematous change on the anterior tibia with edema extending about two-thirds of the distance to the knee bilaterally and fairly symmetrical. PLAN: Options were discussed with the patient. The patient's old chart was reviewed as her current medication regimen updated. Current review of systems updated today as well and we will proceed with refill the patient's medications, both Duragesic patch and oxycodone. Again, the patient has been on very stable regimen. We will make this a 3-month prescription at 90 days as she has had appropriate K-TRACS reporting as well as appropriate urinalysis to date. The patient was given instruction as well as side effects to be aware of with the medication and will follow up in 90 days or sooner if necessary. FABIAN ORDONEZ MD DR: AIDA/reji JOB#: [id number] / [id number]
== END ==
LOC: PNCL 13:34
PROVIDERS: ATTEND Anesthesiology
DX: M51.16 Intervertebral disc disorders with radiculopathy, lumbar region (principal); M96.1 Postlaminectomy syndrome, not elsewhere classified; M25.50 Pain in unspecified joint
CPT/HCPCS: G0463

== ENCOUNTER → 2020-01-21 | Outpatient (CLI) | payer MEDICARE, MEDICAID ==
--- NOTE | 2020-01-21 13:24 | PAIN ---
DATE OF SERVICE: 01/21/2020 PROGRESS NOTE FOR PAIN CLINIC DIAGNOSES: 1. Lumbar radiculopathy with lumbar degenerative disk disease and lumbar post-laminectomy syndrome. 2. Cervical radiculopathy with cervical post-laminectomy syndrome. 3. Multiple joint pain. HISTORY OF PRESENT ILLNESS: The patient is a 64-year-old female who returns for followup status post medication management with oxycodone and Duragesic patches. The patient reports she is doing fairly stable with good reduction in pain about 75% overall with the medications. She reports she is still having some pain in the base of neck and shoulders, more on the right than the left as well as in the right lower extremity, in the left knee, also on the right shoulder. The patient reports that the medication is doing well without specific side effects. No constipation. No drowsiness, itching, nausea and feels that she is tolerating it fairly well and has indeed been on a fairly stable regimen for some time now with the Duragesic patches and oxycodone. The patient reports the pain is a 10 on a scale of 10 at its worst over the past week, 9 on average, 9 at its least and is a 9 today. The patient reports tingling, cramping and stabbing in the base of neck and shoulders, especially the right shoulder and upper extremity, sharp and tight in the back as well with radiating pain in the right lower extremity and into the feet. In the left knee, it was popping and feels weak as well. The patient reports she has been fairly unstable when she gets up of her feet or on her feet from a seated position and has some shaking with the legs when she first gets up, but once she gets walking, the shaking does go away. The patient reports no other complaints, no new motor or sensory deficits, no bowel or bladder incontinence. PHYSICAL EXAMINATION: VITAL SIGNS: The patient's blood pressure 126/70, pulse 94, respirations are 18, temperature 98.1 degrees Fahrenheit, height is 63 inches, weight is 146 pounds. GENERAL: The patient is awake, alert, oriented, appropriate, very pleasant demeanor. HEENT: Shows normocephalic, atraumatic. The patient is wearing eyeglasses. Extraocular movements are intact and symmetrical. Oral cavity: Mucous membranes moist and pink. Dentition is intact. NECK: Shows anterior throat supple without palpable lymphadenopathy noted. Swallow reflex symmetrical. CHEST: Shows normal on inspection. Breath sounds clear to auscultation bilaterally. HEART: Shows S1, S2 clear. No murmurs auscultated. ABDOMEN: Obese, soft, nontender, nondistended. No palpable organomegaly is noted. No rebound or guarding demonstrated. BACK: The patient's back shows spine grossly in the midline. Slight exaggeration of thoracic kyphosis, moderate flattening of lumbar lordotic curvature. Lumbar paraspinous muscle shows symmetrical on inspection, on palpation shows some moderate tenderness diffusely bilaterally throughout the upper, middle and lower distribution of paraspinous muscles, both the cervical and lumbar distributions. No specific trigger points, no radiation is demonstrated. The patient has good rotational motion of cervical spine, both laterally greater than 45 degrees closer to 90 degrees right and left as well as full extension, full forward flexion without significant increase in pain. The patient's right shoulder shows some moderate tenderness over the acromioclavicular joint anteriorly and superiorly, but not posteriorly. The patient has good rotational motion, however, of both the upper extremities with abduction, anterior and posterior reaching, both active and passive without ratcheting or crepitus of the joint. Upper extremity deep tendon reflexes are 2+ biceps and triceps. Motor exam is approximately 4 on a scale of 5, but equal with coagulating operator strength, bicep and tricep flexion and symmetrical. Lower extremities show deep tendon reflexes 1+ patellar and tendo calcaneus tendons. Motor exam is approximately 4 on a scale of 5 as well, but symmetrical with dorsiflexion, extension, quadriceps and hamstring flexion. Peripheral pulses are 1+ posterior tibia. The patient does have a significant decrease in amount of edema in the lower extremities with better toleration and less erythema bilaterally than on previous exam. PLAN: Options were discussed with the patient. The patient's old chart was reviewed as her current medication regimen updated. Current review of systems updated today as well. We will proceed with refill of the patient's medications, both oxycodone as well as Duragesic patches. The patient was given instructions as well as side effects to be aware of each of the medications. The patient currently is approximately 1 month early on her followup today. However, we will give her refill medications for 2-month period. She has one to refill today from her last visit, which will be total of 90 days for followup with medication. The patient has had appropriate K-TRACS reporting as well as appropriate urinalysis to date and we will make this a 90-day refill as stated. The patient was given instruction as well as side effects to be aware of each of the medications and will follow up in approximately 90 days or sooner if necessary. FABIAN ORDONEZ MD DR: AIDA/nts JOB#: [id number] / [id number]
== END | disposition home or self-care (01) ==
LOC: PNCL 12:22
PROVIDERS: ATTEND Anesthesiology
DX: M51.16 Intervertebral disc disorders with radiculopathy, lumbar region (principal); M96.1 Postlaminectomy syndrome, not elsewhere classified
CPT/HCPCS: G0463

== ENCOUNTER → 2020-04-14 | Outpatient (CLI) | payer MEDICARE, MEDICAID ==
[~2020-04-14] MED LIST changes: -CYAN100T2 PO; +CYAN100T24 PO
--- NOTE | 2020-04-14 14:52 | PDOC ---
Progress Note - Pain Clinic Date of Service: DOS: DATE: 04/14/20 TIME: 14:46 Diagnosis: Dx: Lumbar degenerative disc disease with lumbar radiculopathy and post lumbar laminectomy syndrome Cervical radiculopathy with cervical postlaminectomy syndrome Multiple joint pain History or Present Illness: HPI: 64-year-old female returns for follow-up status post medication management with oxycodone and Duragesic patch. Patient reports doing fairly well with medications very stable regimen without specific side effects. Patient where she is felt off balance lately has had some multiple falls with walking her dog also walking with her walker and is hit her head and actually reports that she has cracked her pelvis and she has been in the last time. Patient reports some rib bruising on the left side as well as a injury to the arm with the fall as well but is now healing. Patient reports no side effects with medication and reports about a 70% improvement with the medication without specific side effects. Patient which is not been very active lately because of the fall and she is been healing but is getting better slowly. Patient reports no new motor or sensory deficits no new bowel or bladder incontinence or other complaints. Physical Exam: VS: Blood pressure is 117/72 pulse 101 respiration 16 temperature is 98.4 F weight is 132 pounds PE: PHYSICAL EXAMINATION: GENERAL: The patient is awake, alert, oriented, appropriate, very pleasant demeanor HEENT: Shows normocephalic, atraumatic. Extraocular movements are intact and symmetrical. Oral cavity: Mucous membranes moist and pink. NECK: Shows anterior throat supple without palpable lymphadenopathy noted. Swallow reflex symmetrical. CHEST: Shows normal on inspection. Breath sounds are clear bilaterally, no rales rhonchi or wheezes auscultated but breath sounds are slightly distant in all lung arajuo. HEART: Shows S1, S2 clear. No murmurs auscultated. ABDOMEN: Soft, nontender, nondistended. No palpable organomegaly is noted. No rebound or guarding demonstrated. BACK: Shows spine grossly in the midline. Normal-appearing cervical lordotic curvature. There is slightly increased thoracic kyphosis, some minor flattening of the lumbar lordotic curvature. Lumbar paraspinous muscles show symmetrical on inspection, with well-healed surgical scars noted, on palpation shows some moderate tenderness diffusely throughout the upper, middle and lower distribution of the paraspinous muscles bilaterally and also into the lower thoracic paraspinous musculature, firm and tender, without specific trigger points, without radiation of pain. The patient has good rotational motion of the lumbar spine, both laterally as well as extension and flexion without difficulty. No tenderness over the spinous processes, sacrum or sacroiliac regions. EXTREMITIES: Lower extremities show deep tendon reflexes 1+ in the patellar and tendo calcaneus tendons. Motor exam is 4 on a scale of 5 with right dorsiflexion, extension, quadriceps and hamstring flexion and 4/5 on the left. Peripheral pulses are 1+ posterior tibial. No peripheral edema is noted bilaterally. Lower extremities are warm and dry to touch, equal in color and appearance. The patient is able to and but requires assistance using the arms of the chair and is using a walker to ambulate has that with her today with a bit of a shuffling gait.. SKIN: Shows warm and dry, good turgor. No edema. No sores, rashes or bruising throughout. Procedure: Procedure: Options were discussed with the patient. Patient chart was reviewed as her current medication regimen updated current review of systems updated today as well. Patient has had appropriate K trax reporting as well as appropriate urinalyses to date. We will have urinalysis drawn today for routine screening. Patient would be given refill prescriptions for 90-day supply of both the Duragesic patches as well as the oxycodone with instructions and side effects to be aware of discussed with each of these. We discussed the importance of keeping the prescription safe both filled unfilled and she reports he does keep them in a safe at her house. Patient return to clinic in approximate 90 days or sooner as necessary. Medication Injected: Med Injected: None Condition at Discharge: Condition at Discharge: Condition at discharge is stable FABIAN ORDONEZ MD Apr 14, 2020 14:52
== END | disposition home or self-care (01) ==
LOC: PNCL 14:18
PROVIDERS: ATTEND Anesthesiology
DX: M51.16 Intervertebral disc disorders with radiculopathy, lumbar region (principal); M96.1 Postlaminectomy syndrome, not elsewhere classified; Z88.8 Allergy status to other drugs, medicaments and biological substances; Z79.82 Long term (current) use of aspirin; Z79.899 Other long term (current) drug therapy
CPT/HCPCS: G0463

== ENCOUNTER → 2020-07-09 | Outpatient (CLI) | payer MEDICARE, MEDICAID ==
[~2020-07-09] MED LIST changes: +CYAN100T21 PO; -CYAN100T24 PO
--- NOTE | 2020-07-09 14:00 | PDOC ---
Progress Note - Pain Clinic Date of Service: DOS: DATE: 07/09/20 TIME: 13:56 Diagnosis: Dx: Lumbar radiculopathy with lumbar degenerative disc disease post lumbar laminectomy syndrome Cervical radiculopathy with post cervical neck syndrome Multiple joint pain Left knee joint pain with osteoarthritis History or Present Illness: HPI: 84-year-old female returns for follow-up status post medication management with both Duragesic patches and oxycodone. Patient reports to be doing very well with this and is controlling her pain very significantly about 70 to 75% improvement patient reports she has lost some weight she is feeling much better she reports she is currently off of the liver transplant list. Patient describes pain in the base the neck shoulders upper back mid back low back specially in the lower extremities and significant pain in the left knee over the past 2 months has been getting much worse and does appear swollen on exam today. Patient rates her pain is a 10 on scale 10 is worse over the past week 9 on average 9 its least is a 9 today. Scribes pain is sharp stabbing constant and severe with weightbearing in the left knee aching and burning in the low back and shoulders. Patient reports no new motor or sensory deficits started noticing pain in her right knee as her left knee is becoming more painful and she is overcompensating. Physical Exam: VS: Pressure is 122/52 pulse 74 respirations 16 temperature is 98.1 F height is 63 inches weight is 138 pounds PE: PHYSICAL EXAMINATION: GENERAL: The patient is awake, alert, oriented, appropriate, very pleasant demeanor HEENT: Shows normocephalic, atraumatic. Extraocular movements are intact and symmetrical. Oral cavity: Mucous membranes moist and pink. Dentition is intact. NECK: Shows anterior throat supple without palpable lymphadenopathy noted. Swallow reflex symmetrical. CHEST: Shows normal on inspection. Breath sounds are clear bilaterally, distant but no rales rhonchi or wheezes. HEART: Shows S1, S2 clear. No murmurs auscultated. ABDOMEN: Soft, nontender, nondistended, obese. No palpable organomegaly is noted. No rebound or guarding demonstrated. BACK: Shows spine grossly in the midline. Normal-appearing cervical lordotic curvature. There is slightly increased thoracic kyphosis, some minor flattening of the lumbar lordotic curvature. Lumbar paraspinous muscles show symmetrical on inspection, on palpation shows some moderate tenderness diffusely throughout the upper, middle and lower distribution of the paraspinous muscles bilaterally without specific trigger points, without radiation of pain. The patient has good rotational motion of the lumbar spine, both laterally as well as extension and flexion without significant difficulty. No tenderness over the spinous processes, sacrum or sacroiliac regions. EXTREMITIES: Lower extremities show deep tendon reflexes 1+ in the patellar and tendo calcaneus tendons. Motor exam is 4 on a scale of 5 with right dorsiflexion, extension, quadriceps and hamstring flexion and 4/5 on the left. Peripheral pulses are 1+ posterior tibial. 2+ peripheral edema is noted bilaterally from the ankle to the two thirds to the knee distance on the anterior tibia. Lower extremities are warm and dry to touch, equal in color and appearance. SKIN: Shows warm and dry, good turgor. No edema. No sores, rashes or bruising throughout. Procedure: Procedure: Options were discussed with the patient. Patient's old chart was reviewed as her current medication regimen updated current review of systems updated today as well. Patient has had a appropriate K. Trax reporting as well as appropriate urinalyses to date and we will refill patient's medication Duragesic patches and oxycodone for 3 month period. Patient was given instructions will side effects aware of each of the medications and will follow-up in approximate 3 months or sooner if necessary. Also will make referral for orthopedics for patient's left knee with history of osteoarthritis and significant pain worsening. Medication Injected: Med Injected: None Condition at Discharge: Condition at Discharge: Condition at discharge is stable. FABIAN ORDONEZ MD Jul 09, 2020 14:00
== END | disposition home or self-care (01) ==
LOC: PNCL 13:20
PROVIDERS: ATTEND Anesthesiology
DX: M51.16 Intervertebral disc disorders with radiculopathy, lumbar region (principal); M96.1 Postlaminectomy syndrome, not elsewhere classified; M17.12 Unilateral primary osteoarthritis, left knee; Z79.82 Long term (current) use of aspirin; Z79.899 Other long term (current) drug therapy; Z88.6 Allergy status to analgesic agent; Z98.890 Other specified postprocedural states
CPT/HCPCS: G0463

== ENCOUNTER → 2020-10-01 | Outpatient (CLI) | payer MEDICARE, MEDICAID ==
[~2020-10-01] MED LIST changes: -LACT1CAP29 PO; +LACT1CAP37 PO
--- NOTE | 2020-10-01 13:18 | PDOC ---
Progress Note - Pain Clinic Date of Service: DOS: DATE: 10/01/20 TIME: 13:13 Diagnosis: Dx: Lumbar radiculopathy with lumbar degenerative disc disease and lumbar postlaminectomy syndrome Cervical radiculopathy with cervical postlaminectomy syndrome Multiple joint pain History or Present Illness: HPI: 64-year-old female returns to follow-up status post medication management with Duragesic patches and oxycodone. Patient reports has been doing very well with this and has been on very stable regimen for extended period of time with the medications without significant side effects. Patient reports she still having some weakness in her lower extremities and feels that her fall over the summer when she had a cracked pelvis is still causing some pelvic pain. Patient reports pain in her low back rating the bilateral lower extremities slightly more on the left than the right into the posterior gluteus posterior thigh and calf patient reports is a 10 on scale 10 is worse over the past week 10 at average 9 at its least and is a 10 today. Patient ports that sharp and shooting in the low back and lower extremities as well as tingling cramping and stabbing some pain in the base the neck and left arm as well but more severe in the low back and legs. Patient reports is difficult with her getting around she feels like her legs are weak but she is using a cane but is ambulating under her own power today. Patient reports the pain awakens her from sleep about every 3-4 hours or so from the low back. Patient reports she is still on a liver tr ansplant list and is currently on antibiotic for a respiratory infection although has had no respiratory distress. Physical Exam: VS: Blood pressure 136/76 pulse 96 respiration 16 temperature 98.1 F weight is 127 pounds oxygen saturation 96% on room air PE: PHYSICAL EXAMINATION: GENERAL: The patient is awake, alert, oriented, appropriate, very pleasant demeanor HEENT: Shows normocephalic, atraumatic. Extraocular movements are intact and symmetrical. Oral cavity: Mucous membranes moist and pink. NECK: Shows anterior throat supple without palpable lymphadenopathy noted. Swal low reflex symmetrical. CHEST: Shows normal on inspection. Breath sounds are clear bilaterally, distant but no rales rhonchi or wheezes are auscultated bilaterally.. HEART: Shows S1, S2 clear. No murmurs auscultated. ABDOMEN: Soft, nontender, nondistended, obese. No palpable organomegaly is noted. BACK: Shows spine grossly in the midline. Normal-appearing cervical lordotic cu rvature. There is increased thoracic kyphosis, some flattening of the lumbar lordotic curvature. Lumbar paraspinous muscles show symmetrical on inspection, on palpation shows some tenderness diffusely throughout the upper, middle and lower distribution of the paraspinous muscles, but without specific trigger points, without radiation of pain. The patient has good rotational motion of the lumbar spine, both laterally as well as extension and flexion without significant difficulty. No tenderness over the spinous processes,or sacroiliac regions. EXTREMITIES: Lower extremities show deep tendon reflexes 1+ in the patellar and tendo calcaneus tendons. Motor exam is 4 on a scale of 5 with right dorsiflexion, extension, quadriceps and hamstring flexion and 4/5 on the left. Peripheral pulses are 1+ posterior tibial. 1+ peripheral edema from the ankles to approximately one third the distance to the knee on the anterior tibia is noted bilaterally. Lower extremities are warm and dry to touch, equal in color and appearance. SKIN: Shows warm and dry, good turgor. No edema. No sores, rashes or bruising throughout. Procedure: Procedure: Options were discussed with the patient. Patient's old chart was reviewed as her current medication regimen updated current review of systems updated today as well. We will refill patient's medication both Duragesic patch and oxycodone for a 90-day supply. Patient was given instructions well side effects beware of each of the medications. Patient has had appropriate K tracts reporting as well as appropriate urinalyses to date. We will have a urinalysis done today as part of routine screening also patient's narcotic contract renewed and signed copy given to the patient as well. Patient will follow up in approximate 90 days or sooner if necessary. Medication Injected: Med Injected: None Condition at Discharge: Condition at Discharge: Condition at discharge is stable. FABIAN ORDONEZ MD Oct 01, 2020 13:18
== END | disposition home or self-care (01) ==
LOC: PNCL 12:45
PROVIDERS: ATTEND Anesthesiology
DX: M51.16 Intervertebral disc disorders with radiculopathy, lumbar region (principal); M96.1 Postlaminectomy syndrome, not elsewhere classified; Z79.82 Long term (current) use of aspirin; Z79.899 Other long term (current) drug therapy
CPT/HCPCS: G0463

== ENCOUNTER → 2020-12-24 | Outpatient (CLI) | payer MEDICARE, MEDICAID ==
[~2020-12-24] MED LIST changes: +BUPIVACAINE MPF 0.25% 10 ML VIAL. ONE; +IOHEXOL 180 MG/ML 10 ML VIAL. ONE; +LACT1CAP29 PO; -LACT1CAP37 PO; +methylPREDNISolone ACETATE 80 MG/ML VIAL. ONE
--- NOTE | 2020-12-24 15:30 | PDOC ---
Progress Note - Pain Clinic Date of Service: DOS: DATE: 12/24/20 TIME: 15:26 Diagnosis: Dx: Lumbar radiculopathy with lumbar degenerative disc disease and lumbar postlaminectomy syndrome Cervical radiculopathy with cervical postlaminectomy syndrome Multiple joint pain Left knee joint pain with osteoarthritis History or Present Illness: HPI: 65-year-old female returns for follow-up status post medication management with Duragesic patches and oxycodone. Patient reports has been doing fairly well with this with about a 60 to 70% improvement overall with the medications however still has significant pain in the low back especially and also in the left knee joint patient also has shoulder pain bilateral upper extremity pain and lower extremity pain but mostly in the left knee and low back patient reports the medication is doing well without any significant side effects patient reports that she had misplaced the new patient paperwork for her orthopedist and is in the process of requesting that once again as we have referred her for her left knee. Otherwise patient reports no new motor or sensory deficits no new medical problems again no side effects with the medication. Physical Exam: VS: Blood pressure is 121/74 pulse 87 respirations 18 temperature 90.2 F height is 63 inches weight 125 pounds PE: PHYSICAL EXAMINATION: GENERAL: The patient is awake, alert, oriented, appropriate, very pleasant demeanor HEENT: Shows normocephalic, atraumatic. Extraocular movements are intact and symmetrical. Oral cavity: Mucous membranes moist and pink. Dentition is intact. NECK: Shows anterior throat supple without palpable lymphadenopathy noted. Swallow reflex symmetrical. CHEST: Shows normal on inspection. Breath sounds are clear bilaterally, distant but no rales rhonchi wheezes auscultated, deep breath elicits a dry cough. HEART: Shows S1, S2 clear. No murmurs auscultated. ABDOMEN: Soft, nontender, nondistended, obese. No palpable organomegaly is noted. BACK: Shows spine grossly in the midline. Normal-appearing cervical lordotic curvature. There is increased thoracic kyphosis, some flattening of the lumbar lordotic curvature, with well-healed surgical scarring. Lumbar paraspinous muscles show symmetrical on inspection, on palpation shows some moderate tenderness diffusely throughout the upper, middle and lower distribution of the paraspinous muscles, but without specific trigger points, without radiation of pain. The patient has good rotational motion of the lumbar spine, both la terally as well as extension and flexion without significant difficulty. EXTREMITIES: Lower extremities show deep tendon reflexes 1+ in the patellar and tendo calcaneus tendons. Motor exam is 4 on a scale of 5 with right dorsiflexion, extension, quadriceps and hamstring flexion and 4/5 on the left. Peripheral pulses are 1+ posterior tibial. No peripheral edema is noted bilaterally. Lower extremities are warm and dry. Patient's left knee shows hypertrophy compared to the right with significant tenderness over the medial collateral and lateral collateral ligaments but not for the patellar tendon. Range of motion is intact with out specific crepitus or ratcheting with range of motion. SKIN: Shows warm and dry, good turgor. No edema. No sores, rashes or bruising throughout. Procedure: Procedure: Options were discussed with the patient. Patient chart reviews her current medication regimen updated current review of systems updated today as well. We will add Voltaren gel for patient's knee as well as refill medication Duragesic patch and oxycodone for a 90-day supply. Patient is had appropriate K tracks report as well as appropriate urinalyses to date. Patient was given instructions well side effects aware of each of the medications. Patient is encouraged to follow through with follow-up on orthopedic consultation for her left knee pain as well. Patient will return to clinic in approximate 3 months or sooner if necessary. Medication Injected: Med Injected: None Condition at Discharge: Condition at Discharge: Condition at discharge is stable. FABIAN ORDONEZ MD Dec 24, 2020 15:30
== END | disposition home or self-care (01) ==
LOC: PNCL 14:07
PROVIDERS: ATTEND Anesthesiology
DX: M51.16 Intervertebral disc disorders with radiculopathy, lumbar region (principal); M96.1 Postlaminectomy syndrome, not elsewhere classified; M17.12 Unilateral primary osteoarthritis, left knee; Z79.82 Long term (current) use of aspirin; Z79.899 Other long term (current) drug therapy; Z88.6 Allergy status to analgesic agent
CPT/HCPCS: 99212; J1040; J3490; Q9965; G0463

== ENCOUNTER → 2021-03-18 | Outpatient (CLI) | payer MEDICARE, MEDICAID ==
[~2021-03-18] MED LIST changes: -BUPIVACAINE MPF 0.25% 10 ML VIAL. ONE; +DICL20GE TP; +ESTR50GE TP; -IOHEXOL 180 MG/ML 10 ML VIAL. ONE; -LACT1CAP29 PO; +LACT1CAP37 PO; -methylPREDNISolone ACETATE 80 MG/ML VIAL. ONE
--- NOTE | 2021-03-18 13:31 | PDOC ---
Progress Note - Pain Clinic Date of Service: DOS: DATE: 03/18/21 TIME: 13:26 Diagnosis: Dx: Lumbar radiculopathy with lumbar degenerative disease and lumbar postlaminectomy syndrome spine Cervical radiculopathy with cervical postlaminectomy syndrome Multiple joint pain Left knee joint pain with osteoarthritis History or Present Illness: HPI: 65-year-old female returns in follow-up status post medication management with Duragesic patches and oxycodone. Patient reports doing very well with this also Voltaren gel to the left knee has been very helpful patient reports that she has seen her orthopedic surgeon recently and is recommending left total knee replacement. Patient reports that the Voltaren gel does help by about 20% or so and she is using this 2-3 times daily. Patient reports her medication Duragesic patch as well as oxycodone also doing well with about a 65 to 70% improvement without specific side effects. Patient reports pain still in the base of neck left upper extremity or right shoulder left shoulder right upper extremity as well also low back lower extremities and the left knee specifically patient reports the pain is sharp burning radiating can be constant severe and unbearable in all these areas rated as a 10 on scale 10 is worse over the past week 10 on average nine its least and is a 10 today. Patient also is scheduled for a flexible sigmoidoscopy after a CT scan of the abdomen showed a not well- defined area in the rectum. Patient reports no new motor or sensory deficits no side effects once again with her medications. Physical Exam: VS: Blood pressure is 139/79 pulse 96 respirations 18 temperature 97.9 F weight is 126 pounds. PE: PHYSICAL EXAMINATION: GENERAL: The patient is awake, alert, oriented, appropriate, very pleasant in demeanor. HEENT: Shows normocephalic, atraumatic. Extraocular movements are intact and symmetrical. Oral cavity: Mucous membranes moist and pink. NECK: Shows anterior throat supple without palpable lymphadenopathy noted. CHEST: Shows normal on inspection. Breath sounds are clear bilaterally, distant but no rales or rhonchi. HEART: Shows S1, S2 clear. No murmurs auscultated. ABDOMEN: Soft, nontender, nondistended, obese. BACK: Shows spine grossly in the midline. Normal-appearing cervical lordotic curvature. Cervical paraspinous muscles show symmetrical inspection, on palpation some moderate tenderness diffusely throughout the upper middle lower distribution the paraspinous muscle slightly more on the right than the left but present bilateral without specific trigger points or asymmetry. Patient is good rotation motion cervical spine both laterally as well as extension flexion without significant limitation. There is slightly increased thoracic kyphosis, some minor flattening of the lumbar lordotic curvature. Lumbar paraspinous muscles show symmetrical on inspection, on palpation shows some moderate tenderness diffusely throughout the upper, middle and lower distribution of the paraspinous muscles, but without specific trigger points, without radiation of pain. The patient has good rotational motion of the lumbar spine, both laterally as well as extension and flexion without significant difficulty. EXTREMITIES: Lower extremities show deep tendon reflexes 1+ in the patellar and tendo calcaneus tendons. Motor exam is four on a scale of 5 with right dorsiflexion, extension, quadriceps and hamstring flexion and four/5 on the left. Peripheral pulses are 1+ posterior tibial. No peripheral edema is noted bilaterally. Lower extremities are warm and dry, with discoloration that is symmetrical on the bilateral lower extremities but no edema on inspection today. Upper extremity show deep tendon reflexes 2+ in the bicep tendons, motor is approximate four to scale five but symmetrical ice cream maker strength and bicep and tricep flexion. SKIN: Shows warm and dry, good turgor. No edema. No sores, rashes or bruising throughout. Procedure: Procedure: Options were discussed with patient. Patient's old chart was reviewed as her current medication regimen updated current review of systems updated today as well. We will refill patient's medication both Duragesic patch as well as oxycodone via electronic prescription for her pharmacy in [facility]. Patient was given instructions well side effects with each of the medications. She has been on a very stable medication regimen and has had appropriate K tracks reporting as well as appropriate urinalyses to date. Patient will follow up in approximately 1 month as scheduled. Medication Injected: Med Injected: None Condition at Discharge: Condition at Discharge: Condition at discharge is stable. FABIAN ORDONEZ MD Mar 18, 2021 13:31
== END | disposition home or self-care (01) ==
LOC: PNCL 12:29
PROVIDERS: ATTEND Anesthesiology
DX: M51.16 Intervertebral disc disorders with radiculopathy, lumbar region (principal); M96.1 Postlaminectomy syndrome, not elsewhere classified; M17.12 Unilateral primary osteoarthritis, left knee; Z79.82 Long term (current) use of aspirin; Z79.899 Other long term (current) drug therapy; Z88.6 Allergy status to analgesic agent
CPT/HCPCS: 99212; G0463

== ENCOUNTER → 2021-05-17 | Outpatient (CLI) | payer MEDICARE, MEDICAID ==
[~2021-05-17] MED LIST changes: +OXYC20TA PO
--- NOTE | 2021-05-17 15:52 | PDOC ---
Progress Note - Pain Clinic Date of Service: DOS: DATE: 05/17/21 TIME: 15:50 Diagnosis: Dx: Lumbar radiculopathy lumbar degenerative disease lumbar postlaminectomy syndrome Cervical radiculopathy with cervical postlaminectomy syndrome Multiple joint pain Left knee pain with osteoarthritis History or Present Illness: HPI: Telemedicine visit for patient today with identity verified with date of and full name, total time spent: 14 minutes 65-year-old female via telemedicine visit today requesting a refill of medications both Duragesic patch and oxycodone. Patient's been on very stable regimen has had appropriate K tracks report as well as appropriate urinalyses to date reports about a 70% improvement overall with the medications without any significant side effects. Patient reports she is having some gastrointestinal difficulties and is scheduled to see a specialist next week in [facility]. We discussed patient's medications both Duragesic patch and oxycodone including instructions well side effects aware of each of the medications. We electronically prescribed these to her local pharmacy. Patient will follow up as scheduled in approximate 4 weeks. Physical Exam: PE: FABIAN ORDONEZ MD May 17, 2021 15:52
== END | disposition home or self-care (01) ==
LOC: PNCL 15:17
PROVIDERS: ATTEND Anesthesiology
DX: M51.16 Intervertebral disc disorders with radiculopathy, lumbar region (principal); M96.1 Postlaminectomy syndrome, not elsewhere classified; M17.12 Unilateral primary osteoarthritis, left knee; Z79.82 Long term (current) use of aspirin; Z79.899 Other long term (current) drug therapy; Z88.6 Allergy status to analgesic agent
CPT/HCPCS: G0463

== ENCOUNTER → 2021-07-20 | Outpatient (CLI) | payer MEDICARE, MEDICAID ==
[~2021-07-20] MED LIST changes: +CYCL10TA19 PO; -CYCL10TA2 PO; +FENT1PAT15 TP
--- NOTE | 2021-07-20 14:51 | PDOC ---
Progress Note - Pain Clinic Date of Service: DOS: DATE: 07/20/21 TIME: 14:48 Diagnosis: Dx: Lumbar radiculopathy with lumbar degenerative disease and lumbar postlaminectomy syndrome Cervical radiculopathy with cervical postlaminectomy syndrome Multiple joint pain with osteoarthritis Left knee joint pain with osteoarthritis History or Present Illness: HPI: 65-year-old female returns for follow-up status post medication management with Duragesic patch and oxycodone. Patient reports doing very well with this in a very stable regimen with about a 65 to 70% improvement as previously patient reports still some pain in the low back and into the shoulders and neck worse with activity worse with standing walking changing positions wakes her from sleep only infrequently maybe once a night at the most patient reports initially she is doing much better with distance walking but it was cooler weather over the past week or so, and has had increased pain in the neck and shoulders patient reports her medication is controlling it fairly well with the Duragesic patches and the oxycodone orally. Patient reports no side effects with medication has had appropriate K tracks report as well as appropriate urinalyses to date. Physical Exam: VS: Blood pressure is 119/74 pulse 98 respirations are 16 temperature 97.6 F height is 63 inches weight is 127 pounds PE: PHYSICAL EXAMINATION: GENERAL: The patient is awake, alert, oriented, appropriate, very pleasant in demeanor HEENT: Shows normocephalic, atraumatic. Extraocular movements are intact and symmetrical. Oral cavity: Mucous membranes moist and pink. Dentition is intact. NECK: Shows anterior throat supple without palpable lymphadenopathy noted. Swallow reflex symmetrical. CHEST: Shows normal on inspection. Breath sounds are clear bilaterally, distant and coarse but no rales or rhonchi. HEART: Shows S1, S2 clear. No murmurs auscultated. ABDOMEN: Soft, nontender, nondistended, obese. No palpable organomegaly is noted. BACK: Shows spine grossly in the midline. Normal-appearing cervical lordotic curvature. There is slightly increased thoracic kyphosis, some minor flattening of the lumbar lordotic curvature. Lumbar paraspinous muscles show symmetrical on inspection, on palpation shows some moderate tenderness diffusely throughout the upper, middle and lower distribution of the paraspinous muscles, but without specific trigger points, without radiation of pain. The patient has good rotational motion of the lumbar spine, both laterally as well as extension and flexion without significant difficulty. No tenderness over the spinous processes, sacrum or sacroiliac regions. EXTREMITIES: Lower extremities show deep tendon reflexes 1+ in the patellar and tendo calcaneus tendons. Motor exam is 4 on a scale of 5 with right dorsiflexion, extension, quadriceps and hamstring flexion and 4/5 on the left. Peripheral pulses are 1 posterior tibial. No peripheral edema is noted bilaterally. Lower extremities are warm and dry with dark discoloration in the lower legs bilaterally and some erythematous discoloration on the medial ankle on the left only but without edema and without tenderness. Upper extremity show deep tendon reflexes 2+ in the bicep tricep tendons, motor exam is positive for scale 5 senior instructional designer strength bicep tricep flexion and symmetrical. Peripheral pulses are 2+ radial. SKIN: Shows warm and dry, good turgor. No edema. No sores, rashes or bruising throughout. Procedure: Procedure: Options were discussed with patient. Patient chart reviews her current medication regimen updated current review of systems updated today as well. We will refill patient's medication both Duragesic patch as well as oxycodone, patient was given instructions well side effects aware of each of the medications. Again patient has had appropriate K tracks report as well as appropriate urinalyses to date and weakness a 1 month prescription patient will follow up in approximate 4 weeks as scheduled. Medication Injected: Med Injected: None Condition at Discharge: Condition at Discharge: Condition at discharge is stable. FABIAN ORDONEZ MD Jul 20, 2021 14:51
== END | disposition home or self-care (01) ==
LOC: PNCL 14:12
PROVIDERS: ATTEND Anesthesiology
DX: M51.16 Intervertebral disc disorders with radiculopathy, lumbar region (principal); M96.1 Postlaminectomy syndrome, not elsewhere classified; M17.12 Unilateral primary osteoarthritis, left knee; Z79.82 Long term (current) use of aspirin; Z79.899 Other long term (current) drug therapy; Z88.6 Allergy status to analgesic agent
CPT/HCPCS: 99212; G0463

== ENCOUNTER → 2021-08-13 | Outpatient (CLI) | payer MEDICARE, MEDICAID ==
--- NOTE | 2021-08-13 13:19 | NUR ---
Patient called for medication refill, denies any new medications, verified name pharmacy and next appointment. Patient states she fell Monday and is all bruised up. Denied the need for the Er. Patient denies any constipation or new allergies. Ktsilvestre checked ,
--- NOTE | 2021-08-13 14:06 | PDOC ---
Progress Note - Pain Clinic Date of Service: DOS: DATE: 08/13/21 TIME: 14:04 Diagnosis: Dx: Lumbar radiculopathy with lumbar degenerative disease lumbar postlaminectomy syndrome Cervical radiculopathy with cervical postlaminectomy syndrome Multiple joint pain Left knee joint pain with osteoarthritis History or Present Illness: HPI: Telemedicine visit today with patient with identity verified with full date of as well as full name, total time spent 14 minutes 65-year-old female with telemedicine visit request for medication refill of both Duragesic patch and oxycodone. Patient has been on very stable regimen with these of the medications reports good pain control about 60 to 70% on most days of the neck back and extremity pain. Patient reports still some significant pain with recent colder weather activity standing walking as well as difficulty sleeping from the neck pain but no deficits no bowel or bladder incontinence. Patient has had appropriate K tracks reporting as well as appropriate urinalyses to date. We will electronically prescribed Duragesic patch 25 mcg as well as oxycodone 20 mg patient was given instructions well side effects aware of each of the medications, and will follow up in approximately 4 weeks as scheduled. Physical Exam: PE: FABIAN ORDONEZ MD Aug 13, 2021 14:06
== END | disposition home or self-care (01) ==
LOC: PNCL 10:53
PROVIDERS: ATTEND Anesthesiology
DX: M51.16 Intervertebral disc disorders with radiculopathy, lumbar region (principal); M96.1 Postlaminectomy syndrome, not elsewhere classified; M17.12 Unilateral primary osteoarthritis, left knee; Z79.82 Long term (current) use of aspirin; Z79.899 Other long term (current) drug therapy; Z88.6 Allergy status to analgesic agent
CPT/HCPCS: 99212; G0463

== ENCOUNTER → 2021-09-16 | Outpatient (CLI) | payer MEDICARE, MEDICAID ==
--- NOTE | 2021-09-16 15:07 | PDOC ---
Progress Note - Pain Clinic Date of Service: DOS: DATE: 09/16/21 TIME: 15:05 Diagnosis: Dx: Lumbar radiculopathy with lumbar degenerative disease and lumbar postlaminectomy syndrome Cervical radiculopathy with cervical postlaminectomy syndrome Multiple joint pain with osteoarthritis Left knee joint pain with osteoarthritis History or Present Illness: HPI: Telemedicine visit today with patient today with identity verified with full date of as well as full name, total time spent 14 minutes 65-year-old female via telemedicine visit today requesting refill of Duragesic patch and oxycodone. Patient's been on very stable regimen and reports doing very well with the medication thus far about 70% improvement overall without any significant side effects patient reports still significant pain base of neck and shoulders as well as the low back and bilateral lower extremities patient is seeing a new orthopedic doctor and is considering left knee replacement and is going through the preauthorization. For this at this time. Patient reports otherwise doing fairly well, and she has has had appropriate K tracks reporting as well as appropriate urinalyses to date. We will electronically prescribe patient's Duragesic patch as well as oxycodone, patient was given instructions well side effects aware of each of the medications. Patient will follow-up in approximately 30 days as scheduled. Physical Exam: PE: FABIAN ORDONEZ MD Sep 16, 2021 15:07
== END | disposition home or self-care (01) ==
LOC: PNCL 14:57
PROVIDERS: ATTEND Anesthesiology
DX: M51.16 Intervertebral disc disorders with radiculopathy, lumbar region (principal); M96.1 Postlaminectomy syndrome, not elsewhere classified; M17.12 Unilateral primary osteoarthritis, left knee; Z79.82 Long term (current) use of aspirin; Z79.899 Other long term (current) drug therapy; Z88.6 Allergy status to analgesic agent
CPT/HCPCS: 99212; G0463

== ENCOUNTER → 2021-10-11 | Outpatient (CLI) | payer MEDICARE, MEDICAID ==
[~2021-10-11] MED LIST changes: +ESTR0.62 PO
--- NOTE | 2021-10-11 13:35 | PDOC ---
Progress Note - Pain Clinic Date of Service: DOS: DATE: 10/11/21 TIME: 13:30 Diagnosis: Dx: Lumbar radiculopathy with lumbar degenerative disease and lumbar postlaminectomy syndrome Cervical radiculopathy with cervical postlaminectomy syndrome Multiple joint pain Bilateral knee joint pain with osteoarthritis History or Present Illness: HPI: 65-year-old female returns for follow-up status post medication management with both oxycodone and Duragesic patches. Patient reports has been very stable on this the pain is still fairly well controlled but not 100% patient reports about 70% improvement most times with the medications but without significant side effects except for some constipation which she controls with Movantik and increased hydration as well. Patient reports still significant pain the base the neck shoulders the right upper extremity mid back upper back low back low back and left lower extremity as well as right lower extremity and into the left knee more than the right as well. Patient reports her pain is a 10 on scale 10 is worst 10 on average tenderness least is a 10 today. Patient reports still about 70% improvement with the medications and allows her to perform her daily activities. Patient reports that she fell just after Lionel and had significant pain in the left side of the neck and shoulder as well as her back which is beginning to resolve to some extent now but still more sore than normal. Patient reports pain sharp stabbing cramping radiating can be severe and constant with activity although better at night generally not awaken her from sleep currently. Patient has had appropriate K tracks reporting as well as appropriate urinalysis as well to date. Physical Exam: VS: Blood pressure is 126/76 pulse 91 respirations 20 temperature 30 Fahrenheit height is 5 foot 1 inch weight is 138 pounds. PE: PHYSICAL EXAMINATION: GENERAL: The patient is awake, alert, oriented, appropriate, very pleasant in demeanor HEENT: Shows normocephalic, atraumatic. Extraocular movements are intact and symmetrical. Oral cavity: Mucous membranes moist and pink. NECK: Shows anterior throat supple without palpable lymphadenopathy noted. Swallow reflex is symmetrical. CHEST: Shows normal on inspection. Breath sounds are clear bilaterally, distant but no rales rhonchi or wheezes auscultated. HEART: Shows S1, S2 clear. No murmurs auscultated. ABDOMEN: Soft, nontender, nondistended. No palpable organomegaly is noted. BACK: Shows spine grossly in the midline. Normal-appearing cervical lordotic curvature. Cervical paraspinous muscles show symmetrical inspection on palpation some moderate tenderness diffusely throughout the upper middle lower distribution paraspinous muscles but without trigger points without atrophy or hypertrophy. Patient does show good rotation motion cervical spine both laterally as well as extension and flexion without significant pain reported. There is moderately increased thoracic kyphosis, and some flattening of the lumbar lordotic curvature. Lumbar paraspinous muscles show symmetrical on inspection, on palpation shows some moderate tenderness diffusely throughout the upper, middle and lower distribution of the paraspinous muscles, but without specific trigger points, without radiation of pain. The patient has good rotational motion of the lumbar spine, both laterally as well as extension and flexion without significant difficulty. EXTREMITIES: Lower extremities show deep tendon reflexes 1+ in the patellar and tendo calcaneus tendons. Motor exam is 4 on a scale of 5 with right dorsiflexion, extension, quadriceps and hamstring flexion and 4/5 on the left. Peripheral pulses are 1+ posterior tibial. No peripheral edema is noted bilaterally. Lower extremities are warm and dry. Upper extremity show deep tendon reflexes 2+ in the bicep tricep tendons, motor exam is form scale 5 with wafer fabricator strength bicep and tricep flexion symmetrical. Shoulder shrug is strong and intact without loss of strength on resistance. SKIN: Shows warm and dry, good turgor. No edema. No sores, rashes or bruising throughout. Procedure: Procedure: Options were discussed with patient. Patient chart reviews her current medication regimen updated current review of systems updated today as well. We will electronically prescribe Duragesic patch as well as oxycodone, patient was given instructions well side effects aware of each of the medications. Patient has had appropriate K tracks report as well as appropriate urinalyses as well, to date. Patient will follow up in approximate 30 days as scheduled. Medication Injected: Med Injected: None Condition at Discharge: Condition at Discharge: Condition at discharge is stable. FABIAN ORDONEZ MD Oct 11, 2021 13:35
== END | disposition home or self-care (01) ==
LOC: PNCL 12:54
PROVIDERS: ATTEND Anesthesiology
DX: M51.16 Intervertebral disc disorders with radiculopathy, lumbar region (principal); M96.1 Postlaminectomy syndrome, not elsewhere classified; M17.0 Bilateral primary osteoarthritis of knee; Z79.82 Long term (current) use of aspirin; Z79.899 Other long term (current) drug therapy; Z88.6 Allergy status to analgesic agent
CPT/HCPCS: 99212; G0463

== ENCOUNTER → 2021-12-06 | Outpatient (CLI) | payer MEDICARE, MEDICAID ==
--- NOTE | 2021-12-06 13:58 | PDOC ---
Progress Note - Pain Clinic Date of Service: DOS: DATE: 12/06/21 TIME: 13:48 Diagnosis: Dx: Lumbar radiculopathy with lumbar degenerative disease lumbar postlaminectomy syndrome Cervical radiculopathy with cervical postlaminectomy syndrome Multiple joint pain Left knee joint pain with osteoarthritis History or Present Illness: HPI: 65-year-old female returns for follow-up status post medication management with both Duragesic patch and oxycodone. Patient reports she is doing very well Isaias very stable regimen with occasional constipation but has been taking some [id number] laxatives which do help significantly patient reports that the pain is fairly well controlled with about a 60 to 70% improvement and reduction in pain with the medications. Patient reports her pain is a 10 on scale 10 is worst 10 on average 8 its least is 8 today patient report is worse with walking standing patient the neck and shoulders as well as the low back mid back bilateral lower extremities especially the left shoulder and left knee. Patient reports she is leery about having knee surgery as she has been told she needs this from her orthopedist however she is still deciding whether to do this or not. Patient reports the pain is aching and sharp in the knee stabbing and cramping also dull in the back tight in the back as well as constant and severe in the left shoulder as well as the back and both lower extremities. Patient reports no bowel or bladder incontinence again no side effects with the medication. Physical Exam: VS: Blood pressure is 114/66 pulse 94 respirations 20 temperature 97.9 F weight is 132 pounds. PE: PHYSICAL EXAMINATION: GENERAL: The patient is awake, alert, oriented, appropriate, very pleasant in demeanor HEENT: Shows normocephalic, atraumatic. Extraocular movements are intact and symmetrical. Oral cavity: Mucous membranes moist and pink. Dentition is intact. NECK: Shows anterior throat supple without palpable lymphadenopathy noted. Swallow reflex symmetrical. CHEST: Shows normal on inspection. Breath sounds are clear bilaterally, distant and coarse but no rales or rhonchi auscultated. HEART: Shows S1, S2 clear. No murmurs auscultated. ABDOMEN: Soft, nontender, nondistended, obese. No palpable organomegaly is n oted. BACK: Shows spine grossly in the midline. Normal-appearing cervical lordotic curvature. There is moderately increased thoracic kyphosis, some mild flattening of the lumbar lordotic curvature. Lumbar paraspinous muscles show symmetrical on inspection, on palpation shows some moderate tenderness diffusely throughout the upper, middle and lower distribution of the paraspinous muscles, but without specific trigger points, without radiation of pain. The patient has good rotational motion of the lumbar spine, both laterally as well as extension and flexion without significant difficulty. No tenderness over the spinous processes, sacrum or sacroiliac regions. EXTREMITIES: Lower extremities show deep tendon reflexes 1+ in the patellar and tendo calcaneus tendons. Motor exam is 4 on a scale of 5 with right dorsiflexion, extension, quadriceps and hamstring flexion and 4/5 on the left. Peripheral pulses are 1+ posterior tibial. 1-2+ peripheral edema is noted bilaterally. Lower extremities are warm and dry with significant erythematous change noted in the anterior aspect of the tibia and some on the lateral aspect of the calves bilaterally. Patient has several scratches she reports from a cat as well as a bite wound on the back of the left calf. SKIN: Shows warm and dry, good turgor. No edema. No sores, rashes or bruising throughout. Procedure: Procedure: Options were discussed with the patient. Patient's old chart was reviewed as her current medication regimen updated current review of systems updated today as well. We will refill patient's Duragesic patch as well as oxycodone with instructions side effects aware discussed with each. Patient be given a 1 month prescription and will follow up in approximate 30 days as scheduled. Medication Injected: Med Injected: None Condition at Discharge: Condition at Discharge: Condition at discharge is stable. FABIAN ORDONEZ MD Dec 06, 2021 13:58
== END | disposition home or self-care (01) ==
LOC: PNCL 12:35
PROVIDERS: ATTEND Anesthesiology
DX: M51.16 Intervertebral disc disorders with radiculopathy, lumbar region (principal); M96.1 Postlaminectomy syndrome, not elsewhere classified; M17.12 Unilateral primary osteoarthritis, left knee; Z79.82 Long term (current) use of aspirin; Z79.899 Other long term (current) drug therapy; Z88.6 Allergy status to analgesic agent
CPT/HCPCS: 99212; G0463

== ENCOUNTER → 2022-01-12 | Outpatient (CLI) | payer MEDICARE, MEDICAID ==
--- NOTE | 2022-01-12 11:49 | NUR ---
Patient called requesting a medication refill, Confirmed name , pharmacy,New medications,and next appointment. patient states her pain level is an8/10. States she is seeher liver doctor for more testing. Denies constipation. Ktracks is correct. call transferred to Dr Lauren.
--- NOTE | 2022-01-12 11:57 | PDOC ---
Progress Note - Pain Clinic Date of Service: DOS: DATE: 01/12/22 TIME: 11:54 Diagnosis: Dx: Lumbar radiculopathy with lumbar degenerative disease lumbar postlaminectomy syndrome Cervical radiculopathy cervical postlaminectomy syndrome Multiple joint pain Left knee joint pain with osteoarthritis History or Present Illness: HPI: Telemedicine visit today with patient's identity verified with full name as well as full date of , total time spent 12 minutes, telephone voice only 66-year-old female via telemedicine visit today requesting refill of Duragesic patch as well as oxycodone. Patient has been on a very stable regimen of the medication for prolonged period with good tolerance and good reduction of pain by about 65% patient reports she is doing better today than she had when she was in the office last month and she is having a follow-up with her general neurologist later in the week as well. Patient reports he still has some significant pain in the low back and bilateral lower extremity as well as the neck and shoulders but doing better sleeping better at night no significant side effects with the medications except for occasional constipation which she is using [id number] remedies for and hydration which has been working well for her. Patient reports some increased pain with recent rainy weather but otherwise has had no significant increases in pain or changes in condition. Patient has had appropriate K tracks reporting multiple urinalyses to date as well. We discussed options, and will electronically prescribe Duragesic patch as well as oxycodone patient was given instructions well side effects beware of each of medications. Patient to follow-up in approximate 30 days as scheduled. Physical Exam: PE: FABIAN ORDONEZ MD January 12, 2022 11:57
== END | disposition home or self-care (01) ==
LOC: PNCL 11:24
PROVIDERS: ATTEND Anesthesiology
DX: M51.16 Intervertebral disc disorders with radiculopathy, lumbar region (principal); M96.1 Postlaminectomy syndrome, not elsewhere classified; M17.12 Unilateral primary osteoarthritis, left knee; Z79.82 Long term (current) use of aspirin; Z79.899 Other long term (current) drug therapy; Z88.6 Allergy status to analgesic agent
CPT/HCPCS: 99212; G0463